=== PATIENT | male | born 1960 | race Caucasian/White ===

== ENCOUNTER → 2019-12-31 12:24 | Outpatient (BNVA) | payer BC, SELFPAY | PROVIDERS: PCP Family Medicine; Referring Provider Family Medicine; Visit Provider Anesthesiology Pain Medicine | DX: M54.12 Radiculopathy, cervical region (principal); M79.606 Pain in leg, unspecified; F17.210 Nicotine dependence, cigarettes, uncomplicated; Z79.891 Long term (current) use of opiate analgesic | CPT/HCPCS: 99204 ==

== ENCOUNTER → 2020-01-28 10:57 | Outpatient (BNVA) | payer BC, SELFPAY | PROVIDERS: PCP Family Medicine; Visit Provider Anesthesiology Pain Medicine | DX: M54.12 Radiculopathy, cervical region (principal); M79.606 Pain in leg, unspecified; F17.210 Nicotine dependence, cigarettes, uncomplicated; Z79.891 Long term (current) use of opiate analgesic | CPT/HCPCS: 99214 ==

== ENCOUNTER → 2020-02-25 10:42 | Outpatient (BNVA) | payer BC, SELFPAY | PROVIDERS: PCP Family Medicine; Visit Provider Anesthesiology Pain Medicine | DX: M54.12 Radiculopathy, cervical region (principal); M79.604 Pain in right leg; M79.605 Pain in left leg; F17.210 Nicotine dependence, cigarettes, uncomplicated; Z79.891 Long term (current) use of opiate analgesic | CPT/HCPCS: 99213 ==

== ENCOUNTER → 2020-03-24 08:48 | Outpatient (BNVA) | payer BC, SELFPAY | PROVIDERS: PCP Family Medicine; Visit Provider Anesthesiology Pain Medicine | DX: M54.12 Radiculopathy, cervical region (principal); M79.606 Pain in leg, unspecified; F17.210 Nicotine dependence, cigarettes, uncomplicated; Z79.891 Long term (current) use of opiate analgesic | CPT/HCPCS: 99213 ==

== ENCOUNTER → 2020-04-21 08:58 | Outpatient (BNVA) | payer BC, SELFPAY | PROVIDERS: PCP Family Medicine; Visit Provider Anesthesiology Pain Medicine | DX: G89.29 Other chronic pain (principal); M54.12 Radiculopathy, cervical region; M48.02 Spinal stenosis, cervical region; M54.9 Dorsalgia, unspecified; M79.606 Pain in leg, unspecified; F17.210 Nicotine dependence, cigarettes, uncomplicated; Z78.9 Other specified health status; Z79.891 Long term (current) use of opiate analgesic | CPT/HCPCS: 99214 ==

== ENCOUNTER → 2020-05-19 10:07 | Outpatient (BNVA) | payer BC, SELFPAY | PROVIDERS: PCP Family Medicine; Visit Provider Anesthesiology Pain Medicine | DX: G89.29 Other chronic pain (principal); M54.12 Radiculopathy, cervical region; M48.02 Spinal stenosis, cervical region; M54.9 Dorsalgia, unspecified; M79.604 Pain in right leg; M79.605 Pain in left leg; F17.210 Nicotine dependence, cigarettes, uncomplicated; Z78.9 Other specified health status; Z79.891 Long term (current) use of opiate analgesic | CPT/HCPCS: 99213; 99214 ==

== ENCOUNTER → 2020-06-17 08:28 | Outpatient (BNVA) | payer BC, SELFPAY | PROVIDERS: PCP Family Medicine; Visit Provider Anesthesiology Pain Medicine | DX: G89.29 Other chronic pain (principal); M48.02 Spinal stenosis, cervical region; M54.12 Radiculopathy, cervical region; M54.9 Dorsalgia, unspecified; M79.605 Pain in left leg; M79.604 Pain in right leg; F17.210 Nicotine dependence, cigarettes, uncomplicated; Z78.9 Other specified health status; Z79.891 Long term (current) use of opiate analgesic | CPT/HCPCS: 99213; 99214 ==

== ENCOUNTER → 2020-08-17 08:38 | Outpatient (BNVA) | payer BC, SELFPAY | PROVIDERS: PCP Family Medicine; Visit Provider Anesthesiology Pain Medicine | DX: G89.29 Other chronic pain (principal); M54.12 Radiculopathy, cervical region; M48.02 Spinal stenosis, cervical region; M54.9 Dorsalgia, unspecified; M79.604 Pain in right leg; M79.605 Pain in left leg; F17.210 Nicotine dependence, cigarettes, uncomplicated; Z78.9 Other specified health status; Z79.891 Long term (current) use of opiate analgesic | CPT/HCPCS: 99213; 99214 ==

== ENCOUNTER → 2020-10-15 08:35 | Outpatient (BNVA) | payer BC, SELFPAY | PROVIDERS: PCP Family Medicine; Visit Provider Anesthesiology Pain Medicine | DX: G89.29 Other chronic pain (principal); M54.12 Radiculopathy, cervical region; M48.02 Spinal stenosis, cervical region; R51.9 Headache, unspecified; M54.9 Dorsalgia, unspecified; M79.606 Pain in leg, unspecified; F17.210 Nicotine dependence, cigarettes, uncomplicated; Z78.9 Other specified health status | CPT/HCPCS: 99214 ==

== ENCOUNTER → 2020-12-15 09:47 | Outpatient (BNVA) | payer BC, SELFPAY | PROVIDERS: PCP Family Medicine; Visit Provider Anesthesiology Pain Medicine | DX: G89.29 Other chronic pain (principal); M54.9 Dorsalgia, unspecified; M48.02 Spinal stenosis, cervical region; M79.606 Pain in leg, unspecified; Z78.9 Other specified health status; Z98.890 Other specified postprocedural states; Z79.891 Long term (current) use of opiate analgesic | CPT/HCPCS: 99214 ==

== ENCOUNTER → 2021-02-09 10:59 | Outpatient (BNVA) | payer BC, SELFPAY | PROVIDERS: PCP Family Medicine; Visit Provider Anesthesiology Pain Medicine | DX: G89.29 Other chronic pain (principal); M54.12 Radiculopathy, cervical region; M48.02 Spinal stenosis, cervical region; M54.9 Dorsalgia, unspecified; M79.606 Pain in leg, unspecified; F17.210 Nicotine dependence, cigarettes, uncomplicated; Z78.9 Other specified health status; Z79.891 Long term (current) use of opiate analgesic; Z98.890 Other specified postprocedural states | CPT/HCPCS: 99214 ==

== ENCOUNTER → 2021-04-06 09:00 | Outpatient (BNVA) | payer BC, SELFPAY | PROVIDERS: PCP Family Medicine; Visit Provider Anesthesiology Pain Medicine | DX: G89.29 Other chronic pain (principal); M54.12 Radiculopathy, cervical region; M48.02 Spinal stenosis, cervical region; M54.9 Dorsalgia, unspecified; F17.210 Nicotine dependence, cigarettes, uncomplicated; Z98.890 Other specified postprocedural states; Z78.9 Other specified health status; Z79.891 Long term (current) use of opiate analgesic | CPT/HCPCS: 99214 ==

== ENCOUNTER 2021-05-15 10:59 | Inpatient (IN) | payer BC, SELFPAY ==
[2021-05-15] VITALS (9 sets, daily range): BP systolic 107–158; BP diastolic 60–92; PULSE 62–86; RESP 15–20; TEMP 37.1–37.8; O2SAT 95–100
--- NOTE | 2021-05-15 14:00 | PC.NURSE ---
PT ARRIVED TO ROOM AT 1400.
--- NOTE | 2021-05-15 14:29 | CTR_ITS ---
PROCEDURE INFORMATION: Exam: CT Abdomen And Pelvis With Contrast Exam date and time: 05/15/2021 2:29 PM Age: 60 years old Clinical indication: Left lower quadrant abdominal pain. TECHNIQUE: Imaging protocol: Computed tomography of the abdomen and pelvis with contrast. Radiation optimization: All CT scans at this facility use at least one of these dose optimization techniques: automated exposure control; mA and/or kV adjustment per patient size (includes targeted exams where dose is matched to clinical indication); or iterative reconstruction. Contrast material: OMNIPAQUE 300; Contrast volume: 95 ml; Contrast route: INTRAVENOUS (IV); COMPARISON: CT abdomen pelvis w con* [id number] 04/11/2021 4:15 PM RADIATION DOSE METRICS: Total DLP (mGy-cm): 888.92 FINDINGS: Lungs: There is dependent atelectasis at the lung bases. No pericardial effusion. No hiatal hernia. Liver: The liver is mildly enlarged measuring 17.5 cm. Gallbladder and bile ducts: The gallbladder is unremarkable. Pancreas: The pancreas is unremarkable. Spleen: The spleen is unremarkable. Adrenal glands: The adrenal glands are unremarkable. Kidneys and ureters: The kidneys are unremarkable.; Approximately 50% narrowing of the proximal left renal artery. Stomach and bowel: The stomach and small bowel are unremarkable.; There is marked wall thickening of the distal descending and sigmoid colon suspicious for colitis and/or diverticulitis. There are colonic diverticula in this region. There is an intramural abscess in the sigmoid colon that measures 3.1 x 2.9 x 1.4 cm. There is phlegmonous stranding superior to the sigmoid colon with trace free air. This involves a region measuring 2.2 x 2.3 by 1.0 cm. There is extensive associated edema and mild free fluid. Appendix: The appendix is unremarkable. Intraperitoneal space: See Stomach and bowel finding. Vasculature: No abdominal aortic aneurysm. Lymph nodes: A left periaortic lymph node measures 1.2 x 1.7 cm. Urinary bladder: The bladder wall is thickened most prominent superiorly. This may be reactive. Correlate with urinalysis to assess for cystitis. Reproductive: The prostate measures 3.3 x 5.2 cm. Bones/joints: No acute fracture is seen. Soft tissues: Tiny fat containing umbilical hernia. CT/CT abdomen pelvis w con* [id number] IMPRESSION: 1. There is marked wall thickening of the distal descending and sigmoid colon suspicious for colitis and/or diverticulitis. There are colonic diverticula in this region. There is an intramural abscess in the sigmoid colon, and there is phlegmonous stranding superior to the sigmoid colon with trace free air. There is extensive associated edema and mild free fluid. Recommend colonoscopy upon resolution of acute symptoms to exclude underlying mass. 2. The bladder wall is thickened most prominent superiorly. This may be reactive. Correlate with urinalysis to assess for cystitis. 3. Approximately 50% narrowing of the proximal left renal artery. 4. Mild retroperitoneal lymphadenopathy. 5. Mild hepatomegaly. Radiation Dose CTDIVOL = (mGy): DLP = 888.92 (mGy-cm)
[2021-05-15 14:39] LABS: Add Urine Microscopic? NO; Charge for UA Resulting for Rev
[2021-05-15 14:44] LABS: Basophils % 0.3 %; Eosinophils % 0.3 %; Hematocrit 43.9 % (42.0-52.0); Hemoglobin 14.5 g/dL (11.7-16.6); Lymphocytes # 1.6 10^3/uL (0.8-4.8); Lymphocytes % 10.6 %; Mean Corpuscular Hemoglobin 30.5 pg (28.0-34.0); Mean Corpuscular Volume 92.4 fl (80-94); Mean Platelet Volume 9.6 fL (7.4-10.4); Monocytes # 1.2 10^3/uL (0.2-0.9); Monocytes % 8.1 %; Neutrophils # 12.34 10^3/uL (1.8-7.7); Neutrophils % 80.4 %; Nucleated Red Blood Cells % 0 %; Platelet Count 297 10^3/cmm (130-400); Red Blood Count 4.75 10^6/uL (4.1-5.3); Red Cell Distribution Width 13.4 % (12.1-15.1); White Blood Count 15.3 10^3/uL (4.0-10.0)
[2021-05-15 14:45] LABS: Specific Gravity, Urine 1.005 (1.005-1.030); Urine Appearance Clear (CLEAR); Urine Color Straw (Yellow); pH Urine 7 (5-7)
[2021-05-15 14:46] LABS: Bilirubin Urine Neg (Negative); Blood Urine Neg (Negative); Glucose Urine UA Norm (Normal); Ketones Urine Negative (Negative); Leukocyte Esterase Urine Negative (Negative); Nitrate Urine Negative (Negative); Protein Urine Neg (Negative); Urobilinogen Urine Norm (Negative)
[2021-05-15 15:01] LABS: Alanine Aminotransferase 11 U/L (0-41); Albumin Level 3.7 g/dL (3.5-5.2); Alkaline Phosphatase 92 IU/L (40-130); Aspartate Amino Transferase 7 U/L (0-40); Blood Urea Nitrogen 7 mg/dL (6-20); Calcium 8.8 mg/dL (8.5-10.5); Carbon Dioxide 28 mmol/L (22-29); Chloride 101 mmol/L (98-107); Globulin 3.7 g/dL (1.3-4.6); Glomerular Filtration Rate 170.2 mL/min (90-130); Glucose 94 mg/dL (65-115); Lipase 32 U/L (13-60); Osmolality Calculated 288 mOsm/kg (285-295); Sodium 140 mmol/L (136-145); Total Bilirubin 0.4 mg/dL (0.15-1.2); Total Protein 7.4 g/dL (6.6-8.7)
[2021-05-15] MEDS: sodium chloride 0.9% 500 ML 999 ML IV (15:03)
[2021-05-15] MEDS: morphine 4 mg/mL SDV 1 mL IVP (15:03)
[2021-05-15] MEDS: iohexol 300 mg/mL 100 mL Btl IV (15:16)
[2021-05-15 15:21] LABS: Anion Gap 14.7 (5-19); Potassium 3.7 mmol/L (3.5-5.1)
[2021-05-15] MEDS: acetaminophen 500 mg Tablet 1000 MG PO (15:56)
--- NOTE | 2021-05-15 16:18 | W.ED.GENADLT ---
HPI - General Adult General: Chief complaint: ER Hold Stated complaint: diverticulitis Time Seen by Provider: 05/15/21 14:13 History of Present Illness: HPI narrative: HPI: [60]yo patient w/ hx of recurrent diverticulitis (last diverticulitis flare 1 month ago) presenting to the ED with new onset of LLQ abd pain x 1 days. Denies fever/chill. +nausea w/o vomiting, inability to tolerate PO, hematochezia/melena or diarrhea. Patient is followed by Dr. Rodas and is planning to get an outpatient CT in the next week to determine whether he is a candiate for sigmoid colectomy. Onset: 1 days ago Duration: ongoing Location: LLQ abdomen Severity: moderate Review of Systems Narrative: Constitutional: No fever, no chills. HEENT: No vision changes CV: No chest pain, no palpitations PULM: No cough, no dyspnea. GI: +LLQ abdominal pain, +N/-V/-D. : No dysuria MSKEL: No edema SKIN: No new rashes, no lesions. NEURO: No headache, no focal weakness. HEME: No visible bruises PSYCH: Normal mood PFSH ED PFSH: Medical History Cervical radiculopathy Diverticulitis Smoker Surgical History (Updated 05/15/21 @ 17:06 by Colt Brush MD) History of colonoscopy with polypectomy JUNE 2021 Family History (Updated 05/15/21 @ 17:06 by Colt Brush MD) Mother Cancer Father Emphysema lung Denies family history of Anesthesia complication Bleeding disorder Social History Alcohol intake: never Lives independently: No History of recent travel: No Physical Exam Narrative: EXAM NARRATIVE: Head: Atraumatic Eyes: PERRL, conjunctiva without injection ENT: Mucous membrane moist NECK: Supple without lymphadenopathy LUNGS: CTA CV: RRR ABDOMEN: Soft, +moderate LLQ TTP, no other focal tenderness to palpation, no Horan?s sign, no Rovsing?s sign, no Obturator?s sign, no McBurney?s point tenderness, no guarding or rebound tenderness, no CVA/flank/suprapubic tenderness EXTREMITY: Normal ROM SKIN: No rash or erythema NEURO: Awake and alert. No focal motor deficits. PSYCH: Normal mood and affect. Course Vital Signs: Vital signs: Vital Signs Temperature 98.7 F 05/16/21 03:36 Pulse Rate 78 05/16/21 03:36 Respiratory Rate 18 05/16/21 03:36 Blood Pressure 149/84 05/16/21 03:36 Pulse Oximetry 96 05/16/21 03:36 MDM - General Adult MDM Narrative: Medical decision making narrative: [60]yo patient w/ hx of recurrently diverticulitis presenting to the ED with LLQ abdominal pain x 1days with similar diverticulitis pain. On exam, the patient has LLQ abdominal tenderness without rebound or guarding. Workup: CBC, BMP, Lipase, UA reflex culture, CT abdomen+pelvis w/ contrast Intervention: ABX, pain control Lab Findings: WBC of 15K CT findings: diverticulitis with intramural abscess and trace free air [4:22pm] On reassessment, patient continues to HDS. Continues to have mild/moderate pain. Findings on CT discussed with Dr. Celestin from General Surgery who agrees that the trace free air is likely microperforation not bowel perforation. He recommends abx for intramural abscess and inpatient admission. Patient will be admitted for reevaluation. Given metronidazole 500mg and ceftriaxone 1g. Disposition: Admission with serial observation Lab Data: Labs: Lab Results 05/15/21 05/15/21 05/15/21 Range/Units 14:26 14:32 14:32 WBC 15.3 H (4.0-10.0) 10^3/ uL RBC 4.75 (4.1-5.3) 10^6/u L Hgb 14.5 (11.7-16.6) g/dL Hct 43.9 (42.0-52.0) % MCV 92.4 (80-94) fl MCH 30.5 (28.0-34.0) pg MCHC 33.0 (30.0-36.0) g/dL RDW 13.4 (12.1-15.1) % Plt Count 297 (130-400) 10^3/c mm MPV 9.6 (7.4-10.4) fL Neut % (Auto) 80.4 % Lymph % (Auto) 10.6 % Beadle % (Auto) 8.1 % Eos % (Auto) 0.3 % Baso % (Auto) 0.3 % Neut # (Auto) 12.34 H (1.8-7.7) 10^3/u L Lymph # (Auto) 1.6 (0.8-4.8) 10^3/u L Beadle # (Auto) 1.2 H (0.2-0.9) 10^3/u L Eos # (Auto) 0.0 (0.0-0.8) 10^3/u L Baso # (Auto) 0.0 (0.0-0.1) 10^3/u L Nucleated RBC % (a uto) 0 % Nucleated RBCs # 0.0 /100WBC Sodium 140 (136-145) mmol/L Potassium 3.7 (3.5-5.1) mmol/L Chloride 101 (98-107) mmol/L Carbon Dioxide 28 (22-29) mmol/L Anion Gap 14.7 (5-19) BUN 7 (6-20) mg/dL Creatinine 0.5 L (0.7-1.2) mg/dL GFR Calculation 170.2 H (90-130) mL/min Glucose 94 (65-115) mg/dL Calculated Osmolal ity 288 (285-295) mOsm/k g Calcium 8.8 (8.5-10.5) mg/dL Total Bilirubin 0.4 (0.15-1.2) mg/dL AST 7 (0-40) U/L ALT 11 (0-41) U/L Alkaline Phosphata se 92 (40-130) IU/L Total Protein 7.4 (6.6-8.7) g/dL Albumin 3.7 (3.5-5.2) g/dL Globulin 3.7 (1.3-4.6) g/dL Lipase 32 (13-60) U/L Urine Color Straw (Yellow) Urine Appearance Clear (CLEAR) Urine pH 7 (5-7) Ur Specific Gravit y 1.005 (1.005-1.030) Urine Protein Neg (Negative) Urine Glucose (UA) Norm (Normal) Urine Ketones Negative (Negative) Urine Blood Neg (Negative) Urine Nitrate Negative (Negative) Urine Bilirubin Neg (Negative) Urine Urobilinogen Norm (Negative) mg/dL Ur Leukocyte Viola ase Negative (Negative) Imaging Data^: Other Imaging: Radiologist's impression: [address], [place] [address]NT Scan ReportSigned with Sonu Patient: José Luis Rodrigez #: [id number]: 1960cct#:[id number]/Sex: 60 / MADM Date: 05/15/21Loc: ERRoom/Bed:Attending Dr: Ordering Provider/Ordering MD: Sandra Melgoza MD Date of Service: 05/15/21 Procedure(s): CT abdomen pelvis w con* [id number] Accession Number(s): [id number] Report Number: [id number]/CT abdomen pelvis w con* [id number] Findings discussed with SANDRA MELGOZA at 05/15/2021 4:17 PM CDT. Radiation Dose CTDIVOL = (mGy): DLP = 888.92 (mGy-cm) Addendum Dictated By: Anson MichaelAddendum Signed By: Jenaro Michael Date/Time:05/15/21 1620Addendum Cosigned By: PROCEDURE INFORMATION: Exam: CT Abdomen And Pelvis With Contrast Exam date and time: 05/15/2021 2:29 PM Age: 60 years old Clinical indication: Left lower quadrant abdominal pain. TECHNIQUE: Imaging protocol: Computed tomography of the abdomen and pelvis with contrast. Radiation optimization: All CT scans at this facility use at least one of these dose optimization techniques: automated exposure control; mA and/or kV adjustment per patient size (includes targeted exams where dose is matched to clinical indication); or iterative reconstruction. Contrast material: OMNIPAQUE 300; Contrast volume: 95 ml; Contrast route: INTRAVENOUS (IV); COMPARISON: CT abdomen pelvis w con* [id number] 04/11/2021 4:15 PM RADIATION DOSE METRICS: Total DLP (mGy-cm): 888.92 FINDINGS: Lungs: There is dependent atelectasis at the lung bases. No pericardial effusion. No hiatal hernia. Liver: The liver is mildly enlarged measuring 17.5 cm. Gallbladder and bile ducts: The gallbladder is unremarkable. Pancreas: The pancreas is unremarkable. Spleen: The spleen is unremarkable. Adrenal glands: The adrenal glands are unremarkable. Kidneys and ureters: The kidneys are unremarkable.; Approximately 50% narrowing of the proximal left renal artery. Stomach and bowel: The stomach and small bowel are unremarkable.; There is marked wall thickening of the distal descending and sigmoid colon suspicious for colitis and/or diverticulitis. There are colonic diverticula in this region. There is an intramural abscess in the sigmoid colon that measures 3.1 x 2.9 x 1.4 cm. There is phlegmonous stranding superior to the sigmoid colon with trace free air. This involves a region measuring 2.2 x 2.3 by 1.0 cm. There is extensive associated edema and mild free fluid. Appendix: The appendix is unremarkable. Intraperitoneal space: See Stomach and bowel finding. Vasculature: No abdominal aortic aneurysm. Lymph nodes: A left periaortic lymph node measures 1.2 x 1.7 cm. Urinary bladder: The bladder wall is thickened most prominent superiorly. This may be reactive. Correlate with urinalysis to assess for cystitis. Reproductive: The prostate measures 3.3 x 5.2 cm. Bones/joints: No acute fracture is seen. Soft tissues: Tiny fat containing umbilical hernia. CT/CT abdomen pelvis w con* [id number] IMPRESSION: 1. There is marked wall thickening of the distal descending and sigmoid colon suspicious for colitis and/or diverticulitis. There are colonic diverticula in this region. There is an intramural abscess in the sigmoid colon, and there is phlegmonous stranding superior to the sigmoid colon with trace free air. There is extensive associated edema and mild free fluid. Recommend colonoscopy upon resolution of acute symptoms to exclude underlying mass. 2. The bladder wall is thickened most prominent superiorly. This may be reactive. Correlate with urinalysis to assess for cystitis. 3. Approximately 50% narrowing of the proximal left renal artery. 4. Mild retroperitoneal lymphadenopathy. 5. Mild hepatomegaly. Radiation Dose CTDIVOL = (mGy): DLP = 888.92 (mGy-cm) Dictated By:Mychal Michaeligned By:Mychal Michaeligned Date/Time:05/15/21 1600DD/ 1558 Discharge Plan Discharge Patient Disposition: Admitted As Inpatient Admit Provider: Colt Brush Clinical Impression: Diverticulitis, Intestinal diverticular abscess Condition: Stable Coding Level of Care Code ED Application Operations Engineer for [facility]
[2021-05-15] MEDS: cefTRIAXone 1,000 MG in sodium chloride 0.9% (plus) 50 ML 100 MG IV (16:41)
[2021-05-15] MEDS: metroNIDAZOLE IV 500 MG/100 ML PREMIX 100 MG IV (16:42)
--- NOTE | 2021-05-15 17:02 | PM.HP ---
Providers/Chief Complaint Primary Care Provider: Jesse Sifuentes MD Chief Complaint: diverticulitis History of Present Illness Farrukh Rodrigez is a 60 year old male with a past medical history of cervical disc disease, history of recurrent diverticulitis, last hospitalization was in February 2021 was transferred to [facility], he also had another episode at of diverticulitis as outpatient, treated with Cipro and Flagyl, who comes back to [facility] for recurrent abdominal pain for the last week. He tells me that his symptoms started roughly on Monday, with left lower quadrant abdominal pain, abdominal distention, decrease in stooling, mild nausea, no vomiting, low-grade fevers. Denies any cough, no upper respiratory tract infection symptoms, no shortness of breath, no known exposure to COVID-19, has not received Covid vaccination. His last episode of bowel movement was this morning. His last meal was a few hours ago. Work-up in the emergency room showed a white count of 15.3, temperature of 100, blood pressure 121/81, CT scan showed marked wall thickening of distal descending and sigmoid colon, there also was an intramural abscess in the sigmoid colon, and there is phlegmonous stranding superior to the sigmoid colon with trace free air. These findings were discussed with Dr. Celestin, who recommended inpatient antibiotics, and conservative management, he will follow along. Patient has received Flagyl, ceftriaxone, IV fluids Review of Systems Const: Reports: fever(s); Denies: chills, fatigue or malaise Eyes: Denies: change in vision or blurry vision ENMT: Denies: nasal congestion Resp: Denies: dyspnea, productive cough, non-productive cough or wheezing GI: Reports: abdominal pain, nausea, diarrhea and hematochezia; Denies: vomiting, hematemesis, constipation or melena : Denies: flank pain, difficulty urinating, dysuria or urinary frequency Musc: Reports: neck pain; Denies: back pain Skin/Breast: Denies: rash Neuro: Denies: headache(s), dizziness or vertigo Endo: Denies: polyuria or polydipsia Medications/Allergies Home Medications Medication Instructions Recorded Confirmed Last Taken Type acetaminophen 500 mg tablet 1,000 mg PO BID PRN tab 12/15/20 05/15/21 Unknown History gabapentin 600 mg tablet 1,200 mg PO TID 30 Days #180 tab 02/09/21 05/15/21 05/15/21 Rx oxycodone-acetaminophen 10 mg-325 1 tab PO BID PRN 28 Days #56 tab 04/06/21 05/15/21 05/15/21 Rx mg tablet MDD 2 aspirin-sod bicarb-citric acid 324 mg PO DAILY PRN 05/15/21 05/15/21 Unknown History [Roberta-Monett] Allergies Allergy/AdvReac Type Severity Reaction Status Date / Time No Known Allergies Allergy Verified 04/06/21 09:24 PFSH Acute PFSH: Medical History Cervical radiculopathy Diverticulitis Smoker Surgical History (Updated 05/15/21 @ 17:06 by Colt Brush MD) History of colonoscopy with polypectomy JUNE 2021 Family History (Updated 05/15/21 @ 17:06 by Colt Brush MD) Mother Cancer Father Emphysema lung Denies family history of Anesthesia complication Bleeding disorder Social History Alcohol intake: never Lives independently: No History of recent travel: No Vitals/I&O/Wt Last Vital Signs Temp 100.0 F H 05/15/21 11:50 Pulse 85 05/15/21 15:58 Resp 16 05/15/21 15:58 BP 122/81 05/15/21 15:58 Pulse Ox 97 05/15/21 15:58 Weight last 48 hrs Weight 62.596 kg Physical Exam Const: COMMON NORMALS: no acute distress and patient oriented x3 Eye: COMMON NORMALS: Equal, round and reactive pupils present Neck/C-Spine: COMMON NORMALS: full ROM and no lymphadenopathy THYROID: Thyroid normal Lymph: LYMPHATIC: no lymphadenopathy noted Resp: COMMON NORMALS: normal respiratory effort, No retractions, No use of accessory muscles and clear to auscultation bilaterally AUSCULTATION: clear to auscultation bilaterally Cardio: COMMON NORMALS: regular rate, regular rhythm, S1 normal heart sound present, S2 normal heart sound present, No gallops present (Cardio), No clicks present (Cardio) and No murmurs present (Cardio) RATE: regular rate RHYTHM: regular rhythm HEART SOUNDS: S1 normal heart sound present and S2 normal heart sound present GI: COMMON NORMALS: Normal to inspection, nondistended, normoactive bowel sounds present and Soft to palpation INSPECTION: Yes normal to inspection PALPATION: No Firmness to palpation present (GI), Yes Tenderness to palpation present (GI) Details: LLQ, No Guarding due to palpation present (GI) and No Rigid due to palpation Extremity: COMMON NORMALS: no pedal edema Neuro: COMMON NORMALS: patient oriented x3, CN's II-XII intact bilaterally, moves all extremities and no focal motor deficits Psych: COMMON NORMALS: mental status grossly normal, Normal thought process present and cooperative THOUGHT PROCESS: Normal thought process present Data : 05/15/21 14:32 05/15/21 14:32 A&P Assessment and plan (1) Acute diverticulitis: -CT scan of the abdomen pelvis: there is marked wall thickening of the distal descending and sigmoid colon suspicious for colitis and/or diverticulitis. There are colonic diverticula in this region. There is an intramural abscess in the sigmoid colon, and there is phlegmonous stranding superior to the sigmoid colon with trace free air. There is extensive associated edema and mild free fluid. Recommend colonoscopy upon resolution of acute symptoms to exclude underlying mass. -Thus he has an intramural abscess in the sigmoid colon, with phlegmonous stranding superior to the sigmoid colon with trace free air PLAN: -Admit to general medical floors -Start Zosyn for antibiotic coverage -Morphine for pain -Zofran for nausea -Serial abdominal exams -Trend white count, inflammatory markers -IV fluids -Keep patient n.p.o. -Full code -Lovenox for DVT prophylaxis -General surgery on consult Status: Acute Attestations Medical Necessity Statement*: Patient requires hospitalization, inpatient, greater than 2 midnights, acute diverticulitis, with intramural abscess, with trace air Coding Level of Care Code Acute Radio Communication Coordinator for [facility]ana Diagnoses Acute diverticulitis K57.92
--- NOTE | 2021-05-15 19:11 | PC.NURSE ---
ATTEMPTED TO CALL REPORT TO FLOOR; ON HOLD FOR NURSE FOR 10 MINUTES.
[2021-05-15] MEDS: enoxaparin 40 mg/0.4 mL Syringe SUBCUT (20:30)
[2021-05-15] MEDS: gabapentin 400 mg Capsule 1200 MG PO (20:31)
[2021-05-15] MEDS: morphine 4 mg/mL SDV 1 mL 2 MG IVP (20:39)
[2021-05-15] MEDS: dextrose 5%-sod chloride 0.9% 1,000 ML 100 ML IV (21:48)
[2021-05-15] MEDS: pantoprazole 40 mg SDV IVP (21:57)
[2021-05-15] MEDS: piperacillin-tazobactam 3.375 GM in sodium chloride 0.9% (plus) 50 ML IV (22:03)
[2021-05-16] VITALS (8 sets, daily range): BP systolic 115–149; BP diastolic 67–84; PULSE 75–83; RESP 14–20; TEMP 37–37.6; O2SAT 95–98
[2021-05-16] MEDS: morphine 4 mg/mL SDV 1 mL 2 MG IVP ×3 (01:34→10:46)
[2021-05-16] MEDS: piperacillin-tazobactam 3.375 GM in sodium chloride 0.9% (plus) 50 ML IV ×3 (05:08→20:37)
[2021-05-16 05:53] LABS: Basophils # 0.1 10^3/uL (0.0-0.1); Basophils % 0.5 %; Eosinophils # 0.1 10^3/uL (0.0-0.8); Eosinophils % 0.5 %; Hematocrit 40.5 % (42.0-52.0); Hemoglobin 13.2 g/dL (11.7-16.6); Lymphocytes # 1.7 10^3/uL (0.8-4.8); Mean Corpuscular HGB Conc 32.6 g/dL (30.0-36.0); Mean Corpuscular Hemoglobin 30.6 pg (28.0-34.0); Mean Corpuscular Volume 93.8 fl (80-94); Mean Platelet Volume 9.3 fL (7.4-10.4); Monocytes # 1.1 10^3/uL (0.2-0.9); Monocytes % 8.8 %; Neutrophils # 9.77 10^3/uL (1.8-7.7); Neutrophils % 76.7 %; Nucleated Red Blood Cells % 0 %; Platelet Count 270 10^3/cmm (130-400); Red Blood Count 4.32 10^6/uL (4.1-5.3); Red Cell Distribution Width 13.4 % (12.1-15.1); White Blood Count 12.7 10^3/uL (4.0-10.0)
[2021-05-16 06:22] LABS: Alanine Aminotransferase 8 U/L (0-41); Albumin Level 3.2 g/dL (3.5-5.2); Alkaline Phosphatase 77 IU/L (40-130); Anion Gap 11.6 (5-19); Aspartate Amino Transferase 7 U/L (0-40); Blood Urea Nitrogen 7 mg/dL (6-20); C Reactive Protein 187.5 mg/L (0.0-4.9); Calcium 8.2 mg/dL (8.5-10.5); Carbon Dioxide 25 mmol/L (22-29); Chloride 103 mmol/L (98-107); Globulin 2.9 g/dL (1.3-4.6); Glomerular Filtration Rate 137.9 mL/min (90-130); Glucose 121 mg/dL (65-115); Osmolality Calculated 281 mOsm/kg (285-295); Phosphorus 2.1 mg/dL (2.5-4.5); Potassium 3.6 mmol/L (3.5-5.1); Sodium 136 mmol/L (136-145); Total Bilirubin 0.3 mg/dL (0.15-1.2); Total Protein 6.1 g/dL (6.6-8.7)
[2021-05-16 06:23] LABS: Lactate (Lactic Acid level) 0.9 mmol/L (0.5-2.2)
[2021-05-16] MEDS: dextrose 5%-sod chloride 0.9% 1,000 ML 100 ML IV ×2 (08:37→16:29)
[2021-05-16] MEDS: gabapentin 400 mg Capsule 1200 MG PO ×3 (08:38→20:34)
[2021-05-16] MEDS: pantoprazole 40 mg SDV IVP ×2 (08:38→20:36)
--- NOTE | 2021-05-16 09:03 | PM.CONSULT ---
Providers/Reason For Consult Consulting Physician/Specialty*: General Surgery Rashi Celestin MD Reason for Consult*: Recurrent sigmoid diverticulitis. Attending Physician: Colt Brush MD Primary Care Provider: Jesse Sifuentes MD History of Present Illness History of Present Illness Farrukh Rodrigez is a 60 year old male who was admitted last night with complicated sigmoid diverticulitis. He says that he started having left lower quadrant discomfort about a week ago and it has persisted but was mild. He said yesterday morning he awoke with significantly increased pain. He says he has been having some fevers and chills as well as some nausea but no vomiting. He says his bowel habits have been all over the place. He has seen some evidence of hematochezia over the past 3 days. He came to the emergency department and a CAT scan showed sigmoid diverticulitis with what appeared to be an intramural abscess and perhaps a small area of extraluminal air. He was admitted and started on broad-spectrum antibiotics. The patient has had recurrent episodes of sigmoid diverticulitis and says his first episode happened in August 2020. He apparently did fairly well until February of this summer when he was once again diagnosed with diverticulitis. He improved somewhat but then it sounds like his episode recurred and worsened. He was seen at [facility] and was transferred to the [facility]. He was treated conservatively there, but was told that he may want to consider an elective colonic resection. The patient is currently being seen Dr. Rodas in the office as an outpatient, and was apparently scheduled for a repeat CAT scan tomorrow morning, I am assuming for anatomic purposes and follow-up of previous episodes of diverticulitis and preparations for possible elective colon resection. The patient says he feels about the same this morning. Review of Systems General: Reports: 10 or more systems reviewed and unremarkable except in HPI and below Const: Reports: fever(s) and chills GI: Reports: abdominal pain, nausea, change in stool character and hematochezia; Denies: vomiting Meds/Allergies Home Medications and Allergies Home Medications Medication Instructions Recorded Confirmed Last Taken Type acetaminophen 500 mg tablet 1,000 mg PO BID PRN tab 12/15/20 05/15/21 Unknown History gabapentin 600 mg tablet 1,200 mg PO TID 30 Days #180 tab 02/09/21 05/15/2121 Rx oxycodone-acetaminophen 10 mg-325 1 tab PO BID PRN 28 Days #56 tab 04/06/21 05/15/21 05/15/21 Rx mg tablet MDD 2 aspirin-sod bicarb-citric acid 324 mg PO DAILY PRN 05/15/21 05/15/21 Unknown History [Roberta-Sujey] Allergies Allergy/AdvReac Type Severity Reaction Status Date / Time No Known Allergies Allergy Verified 04/06/21 09:24 Current Medications Current Medications Generic Name Dose Route Start Last Admin Trade Name Freq PRN Reason Stop Dose Admin Enoxaparin Sodium 40 mg 05/15/21 17:44 05/15/21 20:30 Enoxaparin 40 Mg/0.4 Ml Syringe SUBCUT 40 mg Q24H JARRELL Administration Gabapentin 1,200 mg 05/15/21 21:00 05/16/21 08:38 Gabapentin 400 Mg Capsule PO 1,200 mg TID JARRELL Administration Piperacillin Sod/Tazobactam 50 mls @ 12.5 mls/hr 05/15/21 18:00 05/16/21 05:08 Sod 3.375 gm/ Sodium Chloride IV 12.5 mls/hr Q8H JARRELL Administration Protocol Dextrose/Sodium Chloride 1,000 mls @ 100 mls/hr 05/15/21 17:44 05/16/21 08:37 Dextrose 5%-Sod Chloride 0.9% IV 100 mls/hr .Q10H JARRELL Administration Morphine Sulfate 2 mg 05/15/21 17:44 05/16/21 06:27 Morphine 4 Mg/Ml Sdv 1 Ml IVP 2 mg Q4H PRN Administration SEVERE PAIN Pantoprazole Sodium 40 mg 05/15/21 17:44 05/16/21 08:38 Pantoprazole 40 Mg Sdv IVP 40 mg Q12H JARRELL Administration PFSH Acute PFSH: Medical History Cervical radiculopathy Colon polyps Diverticulitis Diverticulosis Smoker Surgical History (Updated 05/16/21 @ 10:06 by Rashi Celestin MD) History of colonoscopy with polypectomy 06/2021 --[facility] Family History (Updated 05/15/21 @ 17:06 by Colt Brush MD) Mother Cancer Father Emphysema lung Denies family history of Anesthesia complication Bleeding disorder Social History Alcohol intake: never Lives independently: No History of recent travel: No Vitals/I&O/Wt Last Vital Signs Temp 98.7 F 05/16/21 03:36 Pulse 78 05/16/21 03:36 Resp 20 H 05/16/21 06:27 BP 149/84 05/16/21 03:36 Pulse Ox 96 05/16/21 03:36 05/15/21 05/16/21 05/16/21 22:59 06:59 14:59 Intake Total 150 / 200 50 / 200 1000 / 1000 Balance 150 / 200 50 / 200 1000 / 1000 Weight last 48 hrs Weight 138 lb Physical Exam Narrative: EXAM NARRATIVE: The patient was encountered in his hospital room. He does not appear to be in any acute distress but acts like he just does not feel very well. The pupils are equal. No carotid bruits are heard. The lungs are clear anteriorly. The heart is regular. The abdomen reveals hypoactive bowel sounds but is soft. He does have his maximum point of tenderness in the lower abdomen in the midline into the left lower quadrant. No obvious masses are palpated. The extremities reveal no edema. Neurologically the patient appears to be grossly intact. Data Imaging^: CT Abd/Pel: Radiologist's impression: CT scan abdomen/pelvis 05/15/2021 IMPRESSION: 1. There is marked wall thickening of the distal descending and sigmoid colon suspicious for colitis and/or diverticulitis. There are colonic diverticula in this region. There is an intramural abscess in the sigmoid colon, and there is phlegmonous stranding superior to the sigmoid colon with trace free air. There is extensive associated edema and mild free fluid. Recommend colonoscopy upon resolution of acute symptoms to exclude underlying mass. 2. The bladder wall is thickened most prominent superiorly. This may be reactive. Correlate with urinalysis to assess for cystitis. 3. Approximately 50% narrowing of the proximal left renal artery. 4. Mild retroperitoneal lymphadenopathy. 5. Mild hepatomegaly. A&P Assessment and plan (1) Diverticulitis of large intestine with complication: CT reviewed. White blood cell count is slightly improved over yesterday. We have discussed diverticulitis in some detail. The patient has been through this several times before and seemed to have a fairly good understanding of the disease process. Continue broad-spectrum antibiotics. Assuming continued improvement, he can continue following up with Dr. Lazo for further discussions regarding elective sigmoid resection. Status: Acute Consult Attestations Medical Necessity Statement: See admitting service's notation. Coding Level of Care Code Acute Invoice Machine Operator for Bianka Huitron Diagnoses Diverticulitis of large intestine with complication K57.32
--- NOTE | 2021-05-16 12:04 | P.PN_ITS ---
Subjective Subjective: Interval history: Patient was seen this morning, he continues to have abdominal pain, no bowel movement, no nausea, no vomiting, no fevers Vitals/I&O/Wt Last Vital Signs Temp 98.9 F 05/16/21 08:00 Pulse 75 05/16/21 08:00 Resp 20 H 05/16/21 10:46 BP 115/67 05/16/21 08:00 Pulse Ox 95 05/16/21 10:46 05/15/21 05/16/21 05/16/21 22:59 06:59 14:59 Intake Total 150 / 150 50 / 200 1050 / 1050 Balance 150 / 150 50 / 200 1050 / 1050 Weight last 48 hrs Weight 62.596 kg Physical Exam Const: COMMON NORMALS: no acute distress and patient oriented x3 Resp: COMMON NORMALS: normal respiratory effort, No retractions, No use of accessory muscles and clear to auscultation bilaterally AUSCULTATION: clear to auscultation bilaterally Cardio: COMMON NORMALS: regular rate, regular rhythm, S1 normal heart sound present and S2 normal heart sound present RATE: regular rate RHYTHM: regular rhythm HEART SOUNDS: S1 normal heart sound present and S2 normal heart sound present GI: COMMON NORMALS: Normal to inspection, nondistended, normoactive bowel sounds present, Soft to palpation and non-tender PALPATION: Yes Soft to palpation and Yes Tenderness to palpation present (GI) Details: LLQ Extremity: COMMON NORMALS: no pedal edema Neuro: COMMON NORMALS: patient oriented x3 Psych: COMMON NORMALS: mental status grossly normal Data : 05/16/21 05:38 05/16/21 05:38 A&P Assessment and plan (1) Acute diverticulitis: -With evidence of intramural abscess, phlegmonous stranding superior to the sigmoid colon with trace free air -CT scan of the abdomen pelvis: there is marked wall thickening of the distal descending and sigmoid colon suspicious for colitis and/or diverticulitis. There are colonic diverticula in this region. There is an intramural abscess in the sigmoid colon, and there is phlegmonous stranding superior to the sigmoid colon with trace free air. There is extensive associated edema and mild free fluid. Recommend colonoscopy upon resolution of acute symptoms to exclude underlying mass. -Thus he has an intramural abscess in the sigmoid colon, with phlegmonous stranding superior to the sigmoid colon with trace free air PLAN: -Admit to general medical floors -Start Zosyn for antibiotic coverage -Switch to Dilaudid for pain -Zofran for nausea -Serial abdominal exams -Trend white count, inflammatory markers -IV fluids -Currently on clear liquids -Full code -Lovenox for DVT prophylaxis -General surgery on consult Status: Acute Attestations Medical Necessity Statement*: Patient requires hospitalization for acute diverticulitis Coding Level of Care Code Acute Toy Department Manager for Bianka Huitron Diagnoses Acute diverticulitis K57.92
[2021-05-16] MEDS: HYDROmorphone 1 mg/mL INJ 1 mL 0.5 MG IVP ×2 (16:00→20:28)
[2021-05-16] MEDS: enoxaparin 40 mg/0.4 mL Syringe SUBCUT (16:29)
[2021-05-17] VITALS (12 sets, daily range): BP systolic 105–126; BP diastolic 61–77; PULSE 63–103; RESP 16–20; TEMP 36.6–37.2; O2SAT 94–98
--- NOTE | 2021-05-17 00:42 | PC.NURSE ---
i reported high pulse 103 to nurse
[2021-05-17] MEDS: HYDROmorphone 1 mg/mL INJ 1 mL 0.5 MG IVP ×6 (00:52→21:36)
[2021-05-17] MEDS: dextrose 5%-sod chloride 0.9% 1,000 ML 100 ML IV ×2 (02:47→13:36)
[2021-05-17] MEDS: piperacillin-tazobactam 3.375 GM in sodium chloride 0.9% (plus) 50 ML IV ×3 (04:59→21:24)
[2021-05-17 05:32] LABS: Basophils # 0.1 10^3/uL (0.0-0.1); Basophils % 0.5 %; Eosinophils # 0.1 10^3/uL (0.0-0.8); Eosinophils % 1.1 %; Hematocrit 38.7 % (42.0-52.0); Hemoglobin 12.7 g/dL (11.7-16.6); Lymphocytes # 1.9 10^3/uL (0.8-4.8); Lymphocytes % 17.3 %; Mean Corpuscular HGB Conc 32.8 g/dL (30.0-36.0); Mean Corpuscular Volume 94.4 fl (80-94); Mean Platelet Volume 9.1 fL (7.4-10.4); Monocytes # 0.8 10^3/uL (0.2-0.9); Monocytes % 7.5 %; Neutrophils # 8.04 10^3/uL (1.8-7.7); Neutrophils % 73.3 %; Nucleated Red Blood Cells % 0 %; Platelet Count 309 10^3/cmm (130-400); Red Cell Distribution Width 13.7 % (12.1-15.1)
[2021-05-17 05:53] LABS: Alanine Aminotransferase 8 U/L (0-41); Alkaline Phosphatase 77 IU/L (40-130); Anion Gap 12.8 (5-19); Aspartate Amino Transferase 5 U/L (0-40); Blood Urea Nitrogen 6 mg/dL (6-20); C Reactive Protein 203.1 mg/L (0.0-4.9); Calcium 8.3 mg/dL (8.5-10.5); Carbon Dioxide 26 mmol/L (22-29); Chloride 104 mmol/L (98-107); Globulin 3.2 g/dL (1.3-4.6); Glomerular Filtration Rate 137.9 mL/min (90-130); Glucose 116 mg/dL (65-115); Magnesium 2.1 mg/dL (1.7-2.3); Osmolality Calculated 287 mOsm/kg (285-295); Phosphorus 2.7 mg/dL (2.5-4.5); Potassium 3.8 mmol/L (3.5-5.1); Sodium 139 mmol/L (136-145); Total Bilirubin 0.4 mg/dL (0.15-1.2); Total Protein 6.2 g/dL (6.6-8.7)
[2021-05-17 05:54] LABS: Lactate (Lactic Acid level) 0.7 mmol/L (0.5-2.2)
[2021-05-17 06:00] LABS: Procalcitonin 0.07 ng/mL (0-0.5)
--- NOTE | 2021-05-17 07:35 | PM.PN ---
Subjective Subjective: Interval history: The patient says he is starting to feel better. He is passing a little bit of flatus. He was hoping we could restart his stool softener daily, as he has been prescribed that in the past. Vitals/I&O/Wt Last Vital Signs Temp 99.0 F 05/17/21 04:00 Pulse 64 05/17/21 04:00 Resp 20 H 05/17/21 04:56 BP 114/68 05/17/21 04:00 Pulse Ox 97 05/17/21 04:00 05/16/21 05/17/21 05/17/21 22:59 06:59 14:59 Intake Total 1456.667 / 3796.667 1290 / 3796.667 Output Total 600 / 600 Balance 1456.667 / 3196.667 690 / 3196.667 Weight last 48 hrs Weight 138 lb Physical Exam Narrative: EXAM NARRATIVE: The patient has been afebrile for 36 hours. The patient still has some lower abdominal tenderness on exam but it is clearly improved from when I saw him yesterday. Data : 05/17/21 05:05 05/17/21 05:05 A&P Assessment and plan (1) Diverticulitis of large intestine with complication: The patient is showing signs of improvement. His exam is improved and his white blood cell count continues to defervesce. Continue IV antibiotics. I will restart the patient stool softener at his request. Status: Acute Attestations Medical Necessity Statement*: See admitting service's notation. Coding Level of Care Code Acute Multiple Drum Sander Helper for Bianka Huitron Diagnoses Diverticulitis of large intestine with complication K57.32
[2021-05-17] MEDS: pantoprazole 40 mg SDV IVP ×2 (08:31→21:24)
[2021-05-17] MEDS: docusate sodium 100 mg Capsule PO (08:31)
[2021-05-17] MEDS: gabapentin 400 mg Capsule 1200 MG PO ×3 (08:31→21:24)
--- NOTE | 2021-05-17 09:07 | PC.NURSE ---
patient rates pain 8/10 in lower back, abdomen and groin. patient given 0.5mg of dilaudid.
--- NOTE | 2021-05-17 13:13 | XRR_ITS ---
PROCEDURE INFORMATION: Exam: XR Abdomen Exam date and time: 05/17/2021 1:13 PM Age: 60 years old Clinical indication: Pain and condition or disease; Intestinal condition; Diverticulitis; Abdominal pain; Generalized TECHNIQUE: Imaging protocol: XR of the abdomen. Views: 2 Views. Upright and supine views. COMPARISON: CT abdomen pelvis w con* [id number] 05/15/2021 3:09 PM FINDINGS: Gastrointestinal tract: Normal. No bowel dilation. Intraperitoneal space: Normal. No free air. Bones/joints: Unremarkable for age. XR/XR abdomen min 2V [id number] IMPRESSION: No acute findings.
[2021-05-17] MEDS: enoxaparin 40 mg/0.4 mL Syringe SUBCUT (16:59)
--- NOTE | 2021-05-17 18:32 | PC.RESP ---
SMOKING CESSATION INFORMATION SENT TO PATIENT.
--- NOTE | 2021-05-17 18:46 | PM.PN ---
Subjective Subjective: Interval history: 60-year-old male admitted for diverticulitis. Reports no bowel movement since Monday. Still has mild abdominal discomfort. Afebrile Medications: Reviewed: Yes Vitals/I&O/Wt Last Vital Signs Temp 98.7 F 05/17/21 15:36 Pulse 74 05/17/21 15:36 Resp 18 05/17/21 17:26 BP 105/63 05/17/21 15:36 Pulse Ox 96 05/17/21 17:26 05/17/21 05/17/21 05/17/21 06:59 14:59 22:59 Intake Total 1290 / 3796.667 1290 / 1290 890 / 2180 Output Total 600 / 600 Balance 690 / 3196.667 1290 / 1290 890 / 2180 Physical Exam Const: COMMON NORMALS: no acute distress and patient oriented x3 Resp: COMMON NORMALS: No use of accessory muscles and clear to auscultation bilaterally AUSCULTATION: clear to auscultation bilaterally Cardio: COMMON NORMALS: regular rate and regular rhythm RATE: regular rate RHYTHM: regular rhythm GI: COMMON NORMALS: Soft to palpation PALPATION: Yes Soft to palpation OTHER: decrease bowel sounds, TTP Neuro: COMMON NORMALS: patient oriented x3 Data : 05/17/21 05:05 05/17/21 05:05 A&P Assessment and plan (1) Diverticulitis: Status: Acute Additional A&P Information #diverticulitis #abdominal pain --CLD --serial labs -continue PRN analgesics, --Senna S added --continue Zosyn DVT: Lovenox Attestations Medical Necessity Statement*: Farrukh Rodrigez's hospital stay will require greater than 2 midnights for diverticulitis Coding Level of Care Code Acute Headstart Teacher for [facility] Fwd Diagnoses Diverticulitis K57.92
[2021-05-18] VITALS (10 sets, daily range): BP systolic 109–135; BP diastolic 64–83; PULSE 63–82; RESP 18–20; TEMP 36.7–37.3; O2SAT 95–98
[2021-05-18] MEDS: HYDROmorphone 1 mg/mL INJ 1 mL 0.5 MG IVP ×5 (01:37→21:02)
[2021-05-18 05:13] LABS: Basophils # 0.1 10^3/uL (0.0-0.1); Basophils % 0.6 %; Eosinophils # 0.2 10^3/uL (0.0-0.8); Eosinophils % 2.8 %; Hematocrit 37.3 % (42.0-52.0); Hemoglobin 12.1 g/dL (11.7-16.6); Mean Corpuscular HGB Conc 32.4 g/dL (30.0-36.0); Mean Corpuscular Hemoglobin 30.3 pg (28.0-34.0); Mean Corpuscular Volume 93.5 fl (80-94); Monocytes # 0.7 10^3/uL (0.2-0.9); Monocytes % 8.1 %; Neutrophils # 5.52 10^3/uL (1.8-7.7); Neutrophils % 65.3 %; Nucleated Red Blood Cells % 0 %; Platelet Count 314 10^3/cmm (130-400); Red Blood Count 3.99 10^6/uL (4.1-5.3); Red Cell Distribution Width 13.4 % (12.1-15.1); White Blood Count 8.5 10^3/uL (4.0-10.0)
[2021-05-18 05:28] LABS: Lactate (Lactic Acid level) 0.7 mmol/L (0.5-2.2)
[2021-05-18] MEDS: dextrose 5%-sod chloride 0.9% 1,000 ML 100 ML IV ×3 (05:30→18:04)
[2021-05-18] MEDS: piperacillin-tazobactam 3.375 GM in sodium chloride 0.9% (plus) 50 ML IV ×3 (05:32→21:32)
[2021-05-18 05:35] LABS: Alanine Aminotransferase 9 U/L (0-41); Alkaline Phosphatase 78 IU/L (40-130); Anion Gap 13.5 (5-19); Aspartate Amino Transferase 6 U/L (0-40); Blood Urea Nitrogen 5 mg/dL (6-20); C Reactive Protein 135.3 mg/L (0.0-4.9); Calcium 8.3 mg/dL (8.5-10.5); Carbon Dioxide 25 mmol/L (22-29); Chloride 103 mmol/L (98-107); Globulin 3.1 g/dL (1.3-4.6); Glomerular Filtration Rate 137.9 mL/min (90-130); Glucose 126 mg/dL (65-115); Magnesium 2.1 mg/dL (1.7-2.3); Osmolality Calculated 285 mOsm/kg (285-295); Phosphorus 2.9 mg/dL (2.5-4.5); Potassium 3.5 mmol/L (3.5-5.1); Sodium 138 mmol/L (136-145); Total Bilirubin 0.3 mg/dL (0.15-1.2); Total Protein 6.1 g/dL (6.6-8.7)
[2021-05-18 05:41] LABS: Procalcitonin 0.04 ng/mL (0-0.5)
--- NOTE | 2021-05-18 07:43 | PM.PN ---
Subjective Subjective: Interval history: The patient feels better. He has had two soft bowel movements. He is getting hungry. Vitals/I&O/Wt Last Vital Signs Temp 98.1 F 05/18/21 03:53 Pulse 63 05/18/21 03:53 Resp 18 05/18/21 05:39 BP 126/78 05/18/21 03:53 Pulse Ox 95 05/18/21 03:53 05/17/21 05/18/21 05/18/21 22:59 06:59 14:59 Intake Total 890 / 4230 2050 / 4230 Output Total 800 / 800 Balance 890 / 3430 1250 / 3430 Physical Exam Narrative: EXAM NARRATIVE: Only mild tenderness remains on exam. Bowel sounds are present. Data : 05/18/21 04:45 05/18/21 04:45 A&P Assessment and plan (1) Diverticulitis of large intestine with complication: Continued improvement. The patient's white blood cell count has normalized. I will start him on a low residue diet and we will see how he does. Status: Acute Attestations Medical Necessity Statement*: See admitting service's notation. Coding Level of Care Code Acute Blow Mold Operator for Bianka Huitron Diagnoses Diverticulitis of large intestine with complication K57.32
[2021-05-18] MEDS: gabapentin 400 mg Capsule 1200 MG PO ×3 (10:05→21:33)
[2021-05-18] MEDS: docusate sodium 100 mg Capsule PO (10:05)
[2021-05-18] MEDS: pantoprazole 40 mg SDV IVP ×2 (10:06→21:32)
--- NOTE | 2021-05-18 10:11 | PC.NURSE ---
Patient stated he has had 4 loose bowel movements this morning. Patient refused Senna but took Colace.
[2021-05-18] MEDS: ondansetron 2 mg/ML SDV 2 mL 4 MG IVP (13:03)
--- NOTE | 2021-05-18 13:30 | PM.PN ---
Subjective Subjective: Interval history: 60-year-old male admitted for diverticulitis. He had two bowel movement today. Diet has been advanced. Report some nausea today. Medications: Reviewed: Yes Vitals/I&O/Wt Last Vital Signs Temp 98.4 F 05/18/21 12:00 Pulse 82 05/18/21 12:00 Resp 18 05/18/21 12:00 BP 109/64 05/18/21 12:00 Pulse Ox 95 05/18/21 12:00 05/17/21 05/18/21 05/18/21 22:59 06:59 14:59 Intake Total 890 / 2180 2050 / 4230 290 / 290 Output Total 800 / 800 Balance 890 / 2180 1250 / 3430 290 / 290 Physical Exam Const: COMMON NORMALS: no acute distress and patient oriented x3 Chest: COMMONS NORMALS: normal inspection of the chest Resp: COMMON NORMALS: normal respiratory effort, No retractions and No use of accessory muscles Cardio: COMMON NORMALS: regular rate and regular rhythm RATE: regular rate RHYTHM: regular rhythm GI: COMMON NORMALS: Soft to palpation and non-tender PALPATION: Yes Soft to palpation Neuro: COMMON NORMALS: patient oriented x3 and CN's II-XII intact bilaterally Psych: COMMON NORMALS: mental status grossly normal and Normal thought process present THOUGHT PROCESS: Normal thought process present Skin: COMMON NORMALS: no rashes or lesions noted GENERAL SKIN EXAM: no rashes or lesions noted Data : 05/18/21 04:45 05/18/21 04:45 A&P Assessment and plan (1) Diverticulitis: Status: Chronic (2) Long-term use of high-risk medication: Status: Acute Additional A&P Information #diverticulitis #abdominal pain --soft diet --serial labs -continue PRN analgesics, --hold Senna S --continue Zosyn --PRN Zofran --DC soon DVT: Lovenox Attestations Medical Necessity Statement*: Farrukh Rodrigez's hospital stay will require greater than 2 midnights for diverticulitis Coding Level of Care Code Acute Skoog Machine Operator for g Fwd Diagnoses Diverticulitis K57.92 Long-term use of high-risk medication Z79.899
[2021-05-18] MEDS: enoxaparin 40 mg/0.4 mL Syringe SUBCUT (18:04)
[2021-05-19] VITALS (7 sets, daily range): BP systolic 115–140; BP diastolic 69–83; PULSE 60–65; RESP 16–18; TEMP 36.4–37.2; O2SAT 93–98
[2021-05-19] MEDS: HYDROmorphone 1 mg/mL INJ 1 mL 0.5 MG IVP ×3 (01:16→11:34)
[2021-05-19] MEDS: piperacillin-tazobactam 3.375 GM in sodium chloride 0.9% (plus) 50 ML IV (04:00)
[2021-05-19] MEDS: dextrose 5%-sod chloride 0.9% 1,000 ML 100 ML IV (04:00)
[2021-05-19 05:21] LABS: Basophils # 0.1 10^3/uL (0.0-0.1); Basophils % 0.7 %; Eosinophils # 0.3 10^3/uL (0.0-0.8); Eosinophils % 4.3 %; Hematocrit 37.7 % (42.0-52.0); Hemoglobin 12.3 g/dL (11.7-16.6); Lymphocytes # 2.1 10^3/uL (0.8-4.8); Lymphocytes % 29.6 %; Mean Corpuscular HGB Conc 32.6 g/dL (30.0-36.0); Mean Corpuscular Hemoglobin 30.4 pg (28.0-34.0); Mean Corpuscular Volume 93.3 fl (80-94); Mean Platelet Volume 9.1 fL (7.4-10.4); Monocytes # 0.5 10^3/uL (0.2-0.9); Monocytes % 7.2 %; Neutrophils # 4.18 10^3/uL (1.8-7.7); Neutrophils % 57.9 %; Nucleated Red Blood Cells % 0 %; Platelet Count 361 10^3/cmm (130-400); Red Blood Count 4.04 10^6/uL (4.1-5.3); Red Cell Distribution Width 13.2 % (12.1-15.1); White Blood Count 7.2 10^3/uL (4.0-10.0)
[2021-05-19 05:39] LABS: Alanine Aminotransferase 13 U/L (0-41); Albumin Level 3.1 g/dL (3.5-5.2); Alkaline Phosphatase 76 IU/L (40-130); Anion Gap 13.8 (5-19); Aspartate Amino Transferase 7 U/L (0-40); Blood Urea Nitrogen 5 mg/dL (6-20); Calcium 8.2 mg/dL (8.5-10.5); Carbon Dioxide 24 mmol/L (22-29); Chloride 108 mmol/L (98-107); Globulin 3.1 g/dL (1.3-4.6); Glomerular Filtration Rate 170.2 mL/min (90-130); Glucose 111 mg/dL (65-115); Osmolality Calculated 292 mOsm/kg (285-295); Potassium 3.8 mmol/L (3.5-5.1); Sodium 142 mmol/L (136-145); Total Bilirubin 0.2 mg/dL (0.15-1.2); Total Protein 6.2 g/dL (6.6-8.7)
[2021-05-19] MEDS: gabapentin 400 mg Capsule 1200 MG PO (08:17)
[2021-05-19] MEDS: docusate sodium 100 mg Capsule PO (08:17)
[2021-05-19] MEDS: pantoprazole 40 mg SDV IVP (08:21)
--- NOTE | 2021-05-19 08:24 | PM.PN ---
Subjective Subjective: Interval history: The patient continues to feel better daily. He says he still has some abdominal discomfort but is having bowel movements, tolerating a low fiber diet, etc. Vitals/I&O/Wt Last Vital Signs Temp 98.2 F 05/19/21 08:00 Pulse 65 05/19/21 08:00 Resp 17 05/19/21 08:00 BP 135/76 05/19/21 08:00 Pulse Ox 93 05/19/21 08:00 05/18/21 05/19/21 05/19/21 22:59 06:59 14:59 Intake Total 846.667 / 3020.000 1763.333 / 3020.000 Balance 846.667 / 3020.000 1763.333 / 3020.000 Physical Exam Narrative: EXAM NARRATIVE: Minimal lower abdominal tenderness remains on exam. Data : 05/19/21 04:58 05/19/21 04:58 A&P Assessment and plan (1) Diverticulitis of large intestine with complication: The patient remains afebrile and the white blood cell count has normalized. I am okay with the patient being discharged on oral antibiotics at any time. He was instructed to follow-up with Dr. Rodas for further discussions regarding surgery. Status: Acute Attestations Medical Necessity Statement*: See admitting service's notation. Coding Level of Care Code Acute Application Integration Architect for Bianka Huitron Diagnoses Diverticulitis of large intestine with complication K57.32
--- NOTE | 2021-05-19 10:42 | PM.DCS ---
Discharge Providers Date of Admission: 05/15/21 17:44 Date of Discharge: May 19, 2021 Attending Provider at Admission: Colt Brush MD Attending Provider at Discharge: Nehemiah Cutler MD Primary Care Provider: Jesse Sifuentes MD Diagnoses at Discharge Discharge Diagnosis (1) Diverticulitis of large intestine with complication: Status: Acute Reason for Visit Reason for Visit: diverticulitis Hospital Course Hospital Course Is a 60-year-old male with history of cervical spine disease, recurrent diverticulitis last hospitalization was February 2021 also episode of outpatient diverticulitis treated with Cipro and Flagyl. Admitted on May 15, 2021 for diverticulitis. Patient was treated with IV antibiotics. General surgery was consulted. During his hospitalization his symptoms had improved he also had advancement of his diet. Surgery recommended colonoscopy upon resolution of acute symptoms. He will follow-up with Dr. Berman as outpatient. A prescription for Augmentin was given. Physical Exam Const: COMMON NORMALS: no acute distress and average body habitus Chest: COMMONS NORMALS: normal inspection of the chest Resp: COMMON NORMALS: normal respiratory effort and No retractions Cardio: COMMON NORMALS: regular rate and regular rhythm RATE: regular rate RHYTHM: regular rhythm GI: COMMON NORMALS: Soft to palpation and non-tender PALPATION: Yes Soft to palpation Discharge Data Data Completed and Pending: Completed Studies During Hospitalization Category Date Time Status CT abdomen pelvis w con* [id number] Urge nt Cat Scan 05/15/21 14:29 Completed XR abdomen min 2V [id number] Routine Exams 05/17/21 13:13 Completed Labs from last 24 hours 05/19/21 05/19/21 04:58 04:58 WBC 7.2 RBC 4.04 L Hgb 12.3 Hct 37.7 L MCV 93.3 MCH 30.4 MCHC 32.6 RDW 13.2 Plt Count 361 MPV 9.1 Neut % (Auto) 57.9 Lymph % (Auto) 29.6 [place] % (Auto) 7.2 Eos % (Auto) 4.3 Baso % (Auto) 0.7 Neut # (Auto) 4.18 Lymph # (Auto) 2.1 [place] # (Auto) 0.5 Eos # (Auto) 0.3 Baso # (Auto) 0.1 Nucleated RBC % (a uto) 0 Nucleated RBCs # 0.0 Sodium 142 Potassium 3.8 Chloride 108 H Carbon Dioxide 24 Anion Gap 13.8 BUN 5 L Creatinine 0.5 L GFR Calculation 170.2 H Glucose 111 Calculated Osmolal ity 292 Calcium 8.2 L Total Bilirubin 0.2 AST 7 ALT 13 Alkaline Phosphata se 76 Total Protein 6.2 L Albumin 3.1 L Globulin 3.1 Vitals: Last Vital Signs Temp 98.2 F 05/19/21 08:00 Pulse 65 05/19/21 08:00 Resp 17 05/19/21 08:00 BP 135/76 05/19/21 08:00 Pulse Ox 93 05/19/21 08:00 Discharge Plan Discharge Patient Disposition: Home Condition: Stable Prescriptions: New acetaminophen 325 mg Tablet 650 mg PO Q6H PRN (Reason: Mild/Mod Pain Or Temp >/= 101) Qty: 30 RF: 0 Augmentin 875-125 mg tablet 1 tab PO BID Qty: 14 RF: 0 Continued acetaminophen [Tylenol Extra Strength] 500 mg tablet 1,000 mg PO BID PRN (Reason: Pain) RF: 0 oxycodone-acetaminophen 10-325 mg tablet 1 tab PO BID MDD 2 PRN (Reason: Chronic pain) 28 Days Qty: 56 RF: 0 gabapentin 600 mg tablet 1,200 mg PO TID 30 Days Qty: 180 RF: 2 aspirin-sod bicarb-citric acid 324 mg Tablet, Effervescent 324 mg PO DAILY PRN (Reason: PRN) RF: 0 Discharge Orders: Discharge Order (Routine); Ordered 05/19/21 Ordered By: Nehemiah Cutler Discharge Diet: Usual diet Discharge Activity: Resume usual activity Patient Instructions: Opioid Safety Discharge Attestations Time Spent in Discharge Care*: less than 30 min Quality Metrics Clinical Quality Measures During this hospital stay, did patient experience: None Coding Level of Care Code Acute Chg FW DC note Diagnoses Diverticulitis of large intestine with complication K57.32
--- NOTE | 2021-05-20 12:00 | PC.SOCIAL ---
discharge follow up call made. patient is taking antibiotics are prescribed. has follow up appointment made with Dr. Sifuentes for 9-8. Feels tired but is doing better.
== END 2021-05-19 12:30 | disposition home or self-care (01) | DRG 392 ==
LOC: ER 14:13 → MEDSURG 19:37
PROVIDERS: Admitting Provider Family Medicine; Emergency Provider Emergency Medicine; PCP Family Medicine; Visit Provider Internal Medicine
DX: K57.20 Diverticulitis of large intestine with perforation and abscess without bleeding (principal); M54.12 Radiculopathy, cervical region; F17.200 Nicotine dependence, unspecified, uncomplicated; Z86.010 Personal history of colon polyps; Z79.891 Long term (current) use of opiate analgesic; Z79.899 Other long term (current) drug therapy
CPT/HCPCS: 36415; 74019; 74177; 80053; 81003; 83605; 83690; 83735; 84100; 84145; 85025; 86140; 96365; 96367; 96372; 96375; 99285; C9113; J0696; J1170; J1650; J2270; J2405; J2543; J7040; Q9967; S0030

== ENCOUNTER → 2021-06-01 09:58 | Outpatient (BNVA) | payer BC, SELFPAY | PROVIDERS: PCP Family Medicine; Visit Provider Anesthesiology Pain Medicine | DX: G89.29 Other chronic pain (principal); M54.12 Radiculopathy, cervical region; M48.02 Spinal stenosis, cervical region; M79.606 Pain in leg, unspecified; Z78.9 Other specified health status; Z98.890 Other specified postprocedural states; Z79.891 Long term (current) use of opiate analgesic | CPT/HCPCS: 99214 ==

== ENCOUNTER → 2021-07-02 14:58 | Outpatient (BNVA) | payer BC, SELFPAY | PROVIDERS: PCP Family Medicine; Visit Provider Surgery | DX: Z01.812 Encounter for preprocedural laboratory examination (principal); Z20.822 Contact with and (suspected) exposure to COVID-19 | CPT/HCPCS: 87635 ==

== ENCOUNTER 2021-07-07 09:44 | Day surgery (SDC) | payer BC, SELFPAY ==
[2021-07-05 14:07] VITALS: BMI 22.9
--- NOTE | 2021-07-07 10:00 | ANES.PREANE2 ---
Pre-Anesthetic Assessment Pre-Anesthetic Assessment: Height/Weight: Height 1.65 m Weight 62.596 kg Preop Diagnosis: Recurrent sigmoid diverticulitis Proposed Procedure: Operation Date: 07/07/21 11:15 Proposed Procedures p Colonoscopy 40467 K57.32(Not Applicable) - Gerardo Rodas MD Was Beta [place] taken within 24 hours: N/A Was Clonidine taken within 24 hours: N/A Social: Social History: Tobacco and No alcohol Exam: Pre-Anes Outpt Exam: alert, oriented x 3 and regular rate & rhythm Airway: Submandibular: WNL Cervical ROM: WNL MP: 2 Dentition: Chipped Pulmonary: Pulmonary: COPD Neuropsych: Neuropsych: Neuropathy Anesthetic Plan: ASA status: 3 Anesthesia: MAC Risk of > 500 ml blood loss (7ml/kg in children): No PFSH Anesthesia PFSH: Medical History Acute diverticulitis Cervical radiculopathy Colon polyps Diverticulitis Diverticulitis of large intestine with complication Diverticulosis Intestinal diverticular abscess Long-term use of high-risk medication Smoker Surgical History History of colonoscopy with polypectomy 06/2020 --[facility] Family History Mother Cancer Father Emphysema lung Denies family history of Anesthesia complication Bleeding disorder Social History Alcohol intake: never Lives independently: No History of recent travel: No Data Anesthesia Cardiac Studies: No Data to Display
[2021-07-07 10:20] VITALS: BP 137/86; PULSE 69; RESP 18; TEMP 36.4; O2SAT 99
[2021-07-07] MEDS: sodium chloride 0.9% 1,000 ML 30 ML IV (10:38)
--- NOTE | 2021-07-07 11:08 | P.HP_ITS ---
Same Day Surgery H&P Indication for Procedure/HPI DATE OF PROCEDURE: July 07, 2021 CHIEF COMPLAINT/INDICATIONFOR SURGICAL PROCEDURE: Colonoscopy PREOP DIAGNOSIS: Recurrent sigmoid diverticulitis PLANNED PROCEDRUE: Operation Date: 07/07/21 11:15 Proposed Procedures p Colonoscopy 23306 K57.32(Not Applicable) - Gerardo Rodas MD 04/29/2021 This is a 60 years old gentleman with recurrent episodes of sigmoid diverticulitis, first episode was back in August 2020 and second episode was April 11, 2021. Did not was hospitalized in outside facilities and he was worked up at [facility] for CT scans and endoscopies were done, last episode patient was transferred to [facility] where he had conservative measures and was placed on antibiotics with the plan to follow- up with general surgery for potential discussion of surgical intervention and address the potential benefits of sigmoid colectomy, patient reports that he had colonoscopy back in 2019 and polyps were removed yet there was a larger polyp that was taken out as well, currently denies any constitutional symptoms and he continues to be a chronic smoker and he is referred to my practice today for further evaluation, unfortunately none of the endoscopy report or CT scan discs or reports are available at the time of consultation 05/26/2021 Patient comes today after recent hospitalization for acute episode of sigmoid colon diverticulitis as he was evaluated and undergone a CT scan of the abdomen and pelvis 05/15/2021 that showed; 1. There is marked wall thickening of the distal descending and sigmoid colon suspicious for colitis and/or diverticulitis. There are colonic diverticula in this region. There is an intramural abscess in the sigmoid colon, and there is phlegmonous stranding superior to the sigmoid colon with trace free air. There is extensive associated edema and mild free fluid. Recommend colonoscopy upon resolution of acute symptoms to exclude underlying mass. 2. The bladder wall is thickened most prominent superiorly. This may be reactive. Correlate with urinalysis to assess for cystitis. 3. Approximately 50% narrowing of the proximal left renal artery. 4. Mild retroperitoneal lymphadenopathy. 5. Mild hepatomegaly. Patient comes today for follow-up as he has been treated conservatively, is s till due for a colonoscopy. He denies any nausea vomiting fevers or chills but yet he does complain of some left lower quadrant abdominal pain, and he was discharged on oral antibiotics Interim history 07/07/2021. Patient comes today for colonoscopy ROS All systems have been reviewed negative except as per the above or per problem list Medications/Allergies* Allergies/Adverse Reactions Allergy/AdvReac Type Severity Reaction Status Date / Time No Known Allergies Allergy Verified 07/07/21 11:09 Current Medications: Generic Name Dose Route Start Last Admin Trade Name Alonzo PRN Reason Stop Dose Admin Sodium Chloride 1,000 mls @ 30 mls/hr 07/07/21 10:00 07/07/21 10:38 Sodium Chloride 0.9% IV 07/08/21 09:59 30 mls/hr .Q24H JARRELL Administration Pertinent History/Comorbid Conditions* Medical History Acute diverticulitis Cervical radiculopathy Colon polyps Diverticulitis Diverticulitis of large intestine with complication Diverticulosis Intestinal diverticular abscess Long-term use of high-risk medication Smoker Surgical History (Updated 05/16/21 @ 10:12 by Rashi Celestin MD) History of colonoscopy with polypectomy 06/2020 --[facility] Family History (Updated 05/15/21 @ 17:06 by Colt Brush MD) Emphysema lung Father Cancer Mother Denies family history of Anesthesia complication Bleeding disorder Social History Alcohol intake: never Lives independently: No History of recent travel: No Pertinent Exam Findings alert, oriented x 3, regular rate & rhythm and procedure specific exam findings (Abdominal examination nontender nondistended soft) Recommendations Surgery/Procedure today (Colonoscopy with possible biopsy) Other Plans: Plan of care; After thorough history and physical examination and reviewing the chart, plan to perform screening colonoscopy. I discussed with the patient in details the risks,benefits,alternatives and indications.The risk of aspiration, bleeding, soft tissue injury, perforation of the colon and other potential concomitant complications were explained to the patient in details,also the potential need for Laproscoy/Laparotomy to repair any related complications including but not limited to colectomy and or Closotomy.The patient understood this well and did agree to proceed. Rationale was carefully and clearly discussed with the patient.Appropriate informed consent have been reviewed and signed All questions have been answered and all concerns have been addressed to patient's satisfaction. Verbal and written Instructions were given to the patient for colonoscopy prep Coding Level of Care Code Acute Petal Shaper Hand for Bianka Huitron
[2021-07-07 12:06] VITALS: BP 98/76; PULSE 78; RESP 16; TEMP 36.2; O2SAT 95
[2021-07-07 12:16] VITALS: BP 128/83; PULSE 54; RESP 16; O2SAT 98
--- NOTE | 2021-07-07 12:52 | ANE.PACU2 ---
Documented by User: Liberty Carmona CRNA 07/07/21 12:52 Inpatient post-anesthesia follow up: Airway intact: Yes Vital signs: Temperature 97.2 F Pulse Rate 54 Respiratory Rate 16 Blood Pressure 128/83 Pulse Oximetry 98 Oxygen Delivery Me thod Room Air Oxygen Flow Rate Fraction of Inspir ed Oxygen Hydration adequate: Yes Nausea and vomiting: No Mental status: Baseline
== END 2021-07-07 12:38 | disposition home or self-care (01) ==
PROVIDERS: PCP Family Medicine; Visit Provider Surgery
PROC: 0DJD8ZZ Inspection of Lower Intestinal Tract, Via Natural or Artificial Opening Endoscopic (ICD-10-PCS; CPT 45378; principal; 2021-07-07 11:15)
DX: K57.32 Diverticulitis of large intestine without perforation or abscess without bleeding (principal); D12.8 Benign neoplasm of rectum; K57.30 Diverticulosis of large intestine without perforation or abscess without bleeding; J44.9 Chronic obstructive pulmonary disease, unspecified; F17.210 Nicotine dependence, cigarettes, uncomplicated
CPT/HCPCS: 45380; 88305; J2704; J7030

== ENCOUNTER → 2021-07-15 15:07 | Outpatient (BNVA) | payer BC, SELFPAY | PROVIDERS: PCP Family Medicine; Visit Provider Surgery | DX: Z01.812 Encounter for preprocedural laboratory examination (principal); Z20.822 Contact with and (suspected) exposure to COVID-19 | CPT/HCPCS: 87635 ==

== ENCOUNTER 2021-07-20 13:14 | Inpatient (IN) | payer BC, SELFPAY ==
[2021-07-19 10:25] VITALS: BMI 22.9
[2021-07-20] VITALS (28 sets, daily range): BP systolic 111–171; BP diastolic 46–97; PULSE 74–110; RESP 16–25; TEMP 36.4–37; O2SAT 91–100
--- NOTE | 2021-07-20 | SCC_ITS ---
Procedure Done: 1. Cystoscopy with LEFT retrograde ureteropyelogram 2. Left ureteral stent placement (8.5 Polish by 26 cm double-pigtail string attached distally) 20.0 seconds of fluoroscopic guidance, for a cumulative dose of 3.55 mGy, was provided to Dr. Olivo by the radiology department. C-arm images of the abdomen/pelvis were saved for the patient's permanent record. [facility]
--- NOTE | 2021-07-20 06:23 | W.PM.OPSUD ---
Surgery/Procedure H&P Update DATE OF PROCEDURE: July 20, 2021 DATE H&P PERFORMED: 07/12/21 H&P UPDATE INFORMATION: I have reviewed H&P completed within last 30 days, I have examined patient prior to procedure and Changes to prior documentation as noted here CHANGES TO PREVIOUS DOCUMENTATION: I did explain and emphasize on the potential side effects related to smoking including but not limited to pneumonia, delayed wound healing, DVT formation and pulmonary embolism. Patient understands all of the above and he agrees to proceed with surgery. I do appreciate urology input and participating taking care of Mr. Rodrigez PREOP DIAGNOSIS: Chronic sigmoid diverticulitis and sigmoid colon polyp PRIMARY INDICATION FOR PROCEDURE: The same PLANNED PROCEDURE: Operation Date: 07/20/21 07:00 Proposed Procedures p Laparoscopic Sigmoidectomy poss Open Flexsigmodioscopy [id number] 57588 K63.5(Not Applicable) - Gerardo Rodas MD
--- NOTE | 2021-07-20 06:49 | ANES.PREANE2 ---
Pre-Anesthetic Assessment Pre-Anesthetic Assessment: Height/Weight: Height 1.65 m Weight 62.596 kg Temp Pulse Resp BP Pulse Ox 97.5 F L 74 18 137/82 98 07/20/21 06:11 07/20/21 06:11 07/20/21 06:11 07/20/21 06:11 07/20/21 06:11 Preop Diagnosis: Chronic sigmoid diverticulitis and sigmoid colon polyp Proposed Procedure: Operation Date: 07/20/21 07:00 Proposed Procedures p Laparoscopic Sigmoidectomy poss Open Flexsigmodioscopy [id number] 82249 K63.5(Not Applicable) - Gerardo Rodas MD Familial anesthetic complications: none Was Beta Barrington taken within 24 hours: N/A Was Clonidine taken within 24 hours: N/A Last intake: Intake Last Liquid Date 08/16/21 Last Liquid Time 22:00 Last Solid Date 07/18/21 Last Solid Time 19:00 Social: Social History: Tobacco and No alcohol Exam: Pre-Anes Outpt Exam: alert, oriented x 3, clear to auscultation bilaterally and regular rate & rhythm Airway: Cervical ROM: WNL MP: 2 Dentition: Chipped Pulmonary: Pulmonary: COPD Musc/skel: Musc/skel: OA/DJD Neuropsych: Neuropsych: Neuropathy Anesthetic Plan: ASA status: 3 Anesthesia: General Risk of > 500 ml blood loss (7ml/kg in children): No PFSH Anesthesia PFSH: Medical History Acute diverticulitis Cervical radiculopathy Colon polyps Diverticulitis Diverticulitis of large intestine with complication Diverticulosis Intestinal diverticular abscess Long-term use of high-risk medication Smoker Surgical History History of colonoscopy with polypectomy 06/2020 --[facility] Family History Mother Cancer Father Emphysema lung Denies family history of Anesthesia complication Bleeding disorder Social History (Updated 07/19/21 @ 10:22 by Lupe Polo) Smoking and tobacco status: current every day smoker cigarettes [ Other cigarette details: 10-15 CIGS PER DAY ] Alcohol intake: never Lives independently: No History of recent travel: No Data Anesthesia Cardiac Studies: No Data to Display
[2021-07-20] MEDS: heparin 5,000 unit/mL INJ 1 mL 3000 UNIT SUBCUT (06:50)
[2021-07-20] MEDS: sodium chloride 0.9% 1,000 ML 30 ML IV (06:50)
[2021-07-20] MEDS: acetaminophen 1,000 MG/100 ML PIGGYBACK 400 MG IV ×3 (06:50→23:14)
--- NOTE | 2021-07-20 06:54 | P.CONIM_ITS ---
Providers/Reason For Consult Consulting Physician/Specialty*: Urology/Olivo Reason for Consult*: Need for ureteral stent for general surgery Attending Physician: Gerardo Rodas MD Primary Care Provider: Jesse Sifuentes MD History of Present Illness History of Present Illness Farrukh Rodrigez is a 61 year old male evaluated for the first time this morning at the request of Dr. Rodas for consideration of a ureteral stent placement intraoperatively for identification of the left ureter during laparoscopic bowel resection. Patient has a history of BPH type symptoms. Denies any history of urethral stricture, kidney stones, difficult catheter placement etc. I did review his CT scan and there was significant inflammatory change from the colon around the area of the left ureter. Reviewed the case with Dr. Rodas and the plan is to proceed with cystoscopy left ureteral stent placement possible bilateral possible retrograde. Informed consent was obtained after detailed explanation of the procedure, rationale for it, benefits risks and a discussion with patient and . Review of Systems Const: Denies: fever(s) or chills Card: Denies: chest pain or palpitations Resp: Denies: dyspnea, productive cough or wheezing GI: Reports: abdominal pain : Denies: flank pain or hematuria Musc: Denies: joint warmth Psych: Denies: memory loss All/Imm: Denies: acute wheezing Meds/Allergies Home Medications and Allergies Home Medications Medication Instructions Recorded Confirmed Last Taken Type gabapentin 600 mg tablet 1,200 mg PO TID 30 Days #180 tab 02/09/21 07/20/21 07/20/21 04:00 Rx oxycodone-acetaminophen 10 mg-325 1 tab PO BID PRN 28 Days #56 tab 06/01/21 07/20/21 07/19/21 18:00 Rx mg tablet MDD 2 erythromycin 500 mg tablet 500 mg PO DAILY 1 Days #3 tab 07/16/21 07/20/21 07/19/21 22:00 Rx neomycin 1 g PO DIRECTED 07/19/21 07/20/21 07/19/21 22:00 History Allergies Allergy/AdvReac Type Severity Reaction Status Date / Time No Known Allergies Allergy Verified 07/19/21 10:22 Current Medications Current Medications Generic Name Dose Route Start Last Admin Trade Name Freq PRN Reason Stop Dose Admin Sodium Chloride 1,000 mls @ 30 mls/hr 07/20/21 06:00 07/20/21 06:50 Sodium Chloride 0.9% IV 07/21/21 05:59 30 mls/hr .Q24H JARRELL Administration PFSH Acute PFSH: Medical History Acute diverticulitis Cervical radiculopathy Colon polyps Diverticulitis Diverticulitis of large intestine with complication Diverticulosis Intestinal diverticular abscess Long-term use of high-risk medication Smoker Surgical History History of colonoscopy with polypectomy 06/2020 --[facility] Family History Mother Cancer Father Emphysema lung Denies family history of Anesthesia complication Bleeding disorder Social History Smoking and tobacco status: current every day smoker cigarettes [ Other cigarette details: 10-15 CIGS PER DAY ] Alcohol intake: never Lives independently: No History of recent travel: No Vitals/I&O/Wt Last Vital Signs Temp 97.5 F L 07/20/21 06:11 Pulse 74 07/20/21 06:11 Resp 18 07/20/21 06:11 BP 137/82 07/20/21 06:11 Pulse Ox 98 07/20/21 06:11 Weight last 48 hrs Weight 138 lb Physical Exam Const: COMMON NORMALS: no acute distress, alert and well nourished GENERAL APPEARANCE: well kempt and well developed ORIENTATION/CONSCIOUSNESS: not confused HENMT: COMMON NORMALS: normocephalic and atraumatic HEAD & SCALP: normocephalic and atraumatic Eye: COMMON NORMALS: conjunctivae normal and no scleral icterus CONJUNCTIVA: Yes conjunctivae normal Neck/C-Spine: COMMON NORMALS: full ROM GENERAL: Yes normal visual inspec tion Lymph: LYMPHATIC: no lymphadenopathy noted Resp: COMMON NORMALS: normal respiratory effort EFFORT & INSPECTION: No labored and No Actively coughing GI: COMMON NORMALS: Soft to palpation, non-tender and no masses PALPATION: Yes Soft to palpation : COMMON NORMALS: Yes no CVA tenderness, Yes normal external exam, Yes Testes normal and Yes scrotum normal BLADDER/KIDNEY EXAM: Yes no CVA tenderness MEATUS: meatus normal Back/Pelvis: COMMON NORMALS: no CVA tenderness Neuro: SENSORIUM/ORIENTATION: Yes alert Psych: COMMON NORMALS: mental status grossly normal APPEARANCE: Yes grossly normal and Yes well kempt ATTITUDE: Yes calm and Yes engaged Skin: COMMON NORMALS: no rashes or lesions noted and no jaundice GENERAL SKIN EXAM: no rashes or lesions noted A&P Assessment and plan (1) Sigmoid diverticulitis: Request for ureteral stent for ureteral identification during laparoscopic sigmoidectomy. Reviewed with Dr. Rodas. Left ureteral stent requested. Possible bilateral Status: Chronic Consult Attestations Medical Necessity Statement: See attending Coding Level of Care Code Acute Supervisor Paper Coating for g Fwd Diagnoses Sigmoid diverticulitis K57.32
--- NOTE | 2021-07-20 06:58 | SC_ITS ---
WS: [id number] INTRAOPERATIVE TECHNIQUE: 4 Spot fluoroscopic images for intraoperative purposes. FLUOROSCOPY TIME: 20.0 seconds CLINICAL INFORMATION: intra-op COMPARISON: None. FINDINGS: Fluoroscopy used for Left double-J ureteral stent placement. SC/C-arm FL for Urology IMPRESSION: Images obtained for intraoperative purposes.
--- NOTE | 2021-07-20 07:03 | P.OP_ITS ---
Operative Report Date of procedure: July 20, 2021 Pre-op Diagnosis: Chronic sigmoid diverticulitis and sigmoid colon polyp Pre-op Diagnosis: Request for left ureteral stent. Post-op diagnosis: same Procedure Done: 1. Cystoscopy with LEFT retrograde ureteropyelogram 2. Left ureteral stent placement (8.5 [place] by 26 cm double-pigtail string attached distally) Pathology: none sent Surgeon: Geovani Anesthesia: General Urine output: Not measured Complications: None Findings: Normal LEFT retrograde ureteropyelogram Stent placed without difficulty. String left on for removal postop if uneventful procedure Condition: stable Disposition: other (Patient turned back over to Dr. Rodas for his procedure.) Brief History: Mr. Rodrigez is a 61-year-old white male who is scheduled for laparoscopic possible open left sigmoidectomy for sigmoid diverticulitis. Due to the inflammatory changes identified on CT scan Dr. Rodas requested a left ureteral stent placement for intraoperative ureteral dilation. Procedure: After routine preoperative evaluation examination and obtaining of informed consent he was taken to the operating suite on 07/20/2021 where general anesthesia was administered without difficulty after appropriate timeout was performed, SCDs confirmed to be functioning, preoperative antibiotics administered, beta-kirill protocol confirmed. Prepped and draped in usual sterile fashion in dorsolithotomy position paying careful attention to avoiding pressure points. 21 B[place] cystoscope with 30 degree lens was introduced to the urethra meatus and advanced into the bladder under videoscopy. Bladder was systematically examined. An 8 [place] cone-tip catheter was intubated into the left ureteral orifice for left retrograde ureteropyelogram which demonstrated normal course and caliber of the left ureter without evidence of hydronephrosis or filling defects. Flexible tip guidewire was advanced up the left ureter easily curling in the area of the renal pelvis and an 8.5 [place] by 26 cm double-pigtail stent was advanced over the guidewire through the cystoscope into appropriate position as confirmed via fluoroscopy and cystoscopy. The string was left attached. Position was confirmed with fluoroscopy and cystoscopy and the procedure was completed. A Marino catheter was placed and the string was left emanating from the urethral meatus. Tolerated procedure well without complications. Patient was then turned over to Dr. Rodas for his procedure. PLANS: Assuming no ureteral issues intraoperatively the stent can be removed postoperatively with the string; instructions provided to the team.
[2021-07-20] MEDS: piperacillin-tazobactam 3.375 GM in sodium chloride 0.9% (plus) 50 ML IV ×2 (07:06→19:48)
[2021-07-20] MEDS: iohexol 300 mg/mL 50 mL Btl (OR ONLY) XX (07:25)
--- NOTE | 2021-07-20 08:33 | SUR.OPER ---
Called and notified her of surgical start and progress.
--- NOTE | 2021-07-20 09:52 | SUR.OPER ---
Called and notified her of surgical progres
[2021-07-20] MEDS: metroNIDAZOLE IV 500 MG/100 ML PREMIX 100 MG IV (11:00)
--- NOTE | 2021-07-20 12:00 | P.OP_ITS ---
Operative Report Date of procedure: July 20, 2021 Pre-op Diagnosis: Chronic sigmoid diverticulitis and sigmoid colon polyp Post-op diagnosis: other (Chronic sigmoid diverticulitis) Post-op Findings: Extensive scarring of the sigmoid colon towards the left lateral wall encasing the left ureter Procedure Done: laparoscopic sigmoid colectomy with colorectal anastomosis Specimens removed/disposition: 1-Sigmoid colon resection with sutures marked proximal 2-Staple line 3-Proximal and distal Staple line Surgeon: Gerardo Rodas Plastic Panel Installer: Surgical techs Johann/medical surgical tech student Vivian Dobson Circulating nurses Jossie Muniz and No Melissa Anesthesia: General (GETA porcelain enameling supervisor Lindsay) Estimated blood loss (mL): 25 IV fluids: 1100 mL of crystalloid 250 mL of 5% albumin Urine output (mL): 200 Condition: stable Disposition: floor Procedure: The patient was brought to the operating room and was placed in a supine position on the operating room table. General endotracheal anesthesia was induced. Time-out was done verifying the patient's name/date of /planned procedure and destination after the procedure, all were in agreement. SCDs confirmed to be functioning, preoperative antibiotics administered per protocol, and beta kirill protocol was confirmed. The patient was then moved to a modified lithotomy position. Left ureteric stent was placed by Dr. Olivo prior to the procedure to save guard the left ureter ureter. Please find separate dictation with urology service A Marino catheter was inserted revealing clear urine. I then after urology has done with their part I started my procedure.Prep of the rectum with Betadine flushes was achieved,The abdomen and perineum were prepped and draped in a sterile fashion. Started by longitudinal skin incision supraumbilical using a Cary trocar technique safe entry to the abdominal cavity was achieved verified by using 10 mm zero degree laparoscopy, switched to a 30? scope, a 12 mm trocar was inserted at the right lower direct visualization,followed by a 5 mm trocar was inserted at the right upper quadrant under direct visualization and another 5 mm trocar was inserted to the left side of the abdomen under direct visualization. I started by mobilizing the sigmoid colon , including the inked portion that signifies the distal part to the pathology,through the line of Toldt using the LigaSure and the left ureter was identified with the stent within.,I was able to use sharp and blunt dissection to mobilize the sigmoid colon.Noticed to have extensive scarring of the sigmoid colon with intense chronic inflammatory process and desmoid reaction, encasing the left ureter, time was taken with very careful dissection took place to save the left ureter and the stent continued to be identified. Without violation of the integrity of the left ureter. Advertent Resoctostomy was sustained during dissection and a [id number] silk suture was placed. Followed by a purse string 2-0 silk suture for control and for countertraction followed by application of [place] 60 mm green loads was fired with intact staple line. There was minimal spillage. In the interim an additional 5 mm trocar was inserted at the left side of the abdomen to help with countertraction. With the countertraction was achieved I was able to identify and skeletonized the SUNNY pedicle and 45 mm vascular GI load was applied to secure the SUNNY pedicle as a high ligation to maximize the lymph node basins of the specimen. At that point I continued dissection and mobilizing the left side of the colon up to the splenic flexure. At that point I created transverse incision at the left 5 mm trocar site were and the wound protection device was placed, I was able to deliver the distal sigmoid colon Inclusive for the inflammatory mass, and the [place] 60 mm blue load was fired and rest of the mesentery was divided by LigaSure device and the specimen was marked by sutures to identify proximal component and passed to the circulating nurse for pathology. Attention was deviated at the proximal colon were the staple line was taken off with Mio scissors. With good bleeding edges. The colon was sized and a size 29 EEA stapler was decided upon. The anvil was sewn into the proximal sigmoid with a running suture of 3-0 Prolene followed by 3-0 Vicryl ,that part of the colon was dropped back into the abdominal cavity. And a good seal was obtained by the wound protection device. Gloves were changed at this point.The EEA was introduced through the rectum by my partner Dr. Anderson as he scrubbed in and join me at that point and was opened through the distal staple line.The anvil was connected and was slowly screwed down until the 2 limbs of bowel were contacting each other with good orientation of the mesentery of the colon. The Surrounding structures were again confirmed to be out of the area and the EEA was fired. The EEA was removed and 2 colonic rings of tissue were found in the EEA with mild attenuation of the tissues at the periphery. Both doughnuts as well as the proximal sigmoid staple line were sent to pathology. The pelvis was again irrigated and while some irrigation was still in the pelvis a flexible sigmoidoscope was used to inflate the distal colon via the rectum, having placed a long blade Leni bowel was clamped proximal to the staple line on the sigmoid. The colon filled very well and no air leaks were seen under a level of saline in the pelvis.Further irrigation was carried out.The abdomen was then irrigated.No ongoing bleeding or other problems were seen anywhere in the abdomen. Bilateral TAP (transversus abdominous plain peripheral nerve block )block using Exparel 20 mL Exparel 40 ml Normal saline 20 ml bupivacaine 0.25% 30 mL on each side injected 20 mL injected the port sites I elected to place a figure of eight 2-0 silk suture at the seromuscular layer of the anterior colorectal anastomosis. I asked my circulating nurse to remove the ureteric stent while under the laparoscopic view and that was taken out without complications. And without jeopardizing the integrity of the left ureter. All trocars were taken out under direct visualization and closure of the left lateral incision was done in 2 layers using PDS and Vicryl sutures, as well as the supraumbilical trocar site and the right lower quadrant 12 mm trocar site were closed by #1 PDS sutures using fascial closure device prior to deflation of gas under direct visualization and all trocar sites were closed by skin genevieve, dressing was applied Counts of sponges,needles and instruments were completed at the end of the procedure. Patient tolerated the procedure well and got extubated and was taken directly to the PACU area I was present for the whole entire procedure. Due to medical necessity. Plastic Panel Installer surgeon is required to assist in this procedure in the form of; Introduced the EEA via the anus, and assist in performing colorectal anastomosis, followed by introduction of the flex sigmoidoscopy to rule
[2021-07-20] MEDS: HYDROmorphone 1 mg/mL INJ 1 mL 0.5 MG IVP ×2 (12:25→13:22)
[2021-07-20] MEDS: midazolam 1 mg/mL INJ 2 mL IVP (12:43)
--- NOTE | 2021-07-20 12:49 | SUR.PHASEI ---
1213 PT TO PACU RESTLESS ROLLING IN BED , PT AWAKE ALERT FINALLLY POSITIONS SELF ON RT SIDE, GOOD RESP EFFORT NOTED WARM BLANKETS TO PT X 3 ORDERS RECIEVED TO START WITH DILAUDID FOR PAIN IN PHASE 1 RECOVERY 1225 PT ANXIOUS RESTLESS C/O OF ABD PAIN SEE MED GIVEN 1245 PT STILL RESTLESS ROLLING IN BED SEE VERSED GIVEN ORDERED 1255 PT RESTING MORE QUIETLY PT ONLY COMPLAINT NOW IS ( I HAVE TO PEE) PT REORIENTED TO JACKSON CATHETER REPEATEDLY, VSS.
--- NOTE | 2021-07-20 13:10 | SUR.PHASEI ---
PT RESTING QUIETLY NOW, JACKSON TO DD WITH DARK BLOOD TINGED URINE, DR GONZALEZ AWARE, PATENT AND URINE NOTED IN TUBING WELL STAT LOCK TO RT INNER THIGH. 5 SITES TO ABD DRESSING D/I. PT HAS NASAL CANNULA O2 AT 3L SATS 100%
--- NOTE | 2021-07-20 13:12 | SUR.PHASEI ---
PT OUT OF PHASE 1 AND NOW IN HOLDING WAITING TO GIVE REPORT TO FLOOR NURSE.
--- NOTE | 2021-07-20 13:27 | SUR.PHASEI ---
1320 PT AWAKES STARTS SHAKING PURPOSEFULLY AND STAATES ( IT HURTS , I HAVE TO PEE) SEE MED GIVEN, PT JACKSON PATENT OF RED URINE NO CLOTS IN APPROX 100ML SINCE LAST EMPTIED.
--- NOTE | 2021-07-20 14:03 | PC.NURSE ---
OR NOTE UP VIA BED WITH VANCE RN - ASST TO BED X3 - 02 2LNC - AP RRR - LUNGS CTA THROUGHOUT - ABD SOFT WITH SOME DISTENTION - BS HYPOACTIVE - JACKSON WITH BLOODY URINE NOTED - X5 BANDAIDS TO ABD WITH SMALL AMOUNT OF DRAINAGE NOTED - MEDINA SCD'S IN PLACE - PT SHAKING - AT SIDE AND SAYS PT CONSTANTLY SHAKES LEGS
[2021-07-20] MEDS: lactated ringers 1,000 ML 125 ML IV ×2 (14:09→22:06)
[2021-07-20] MEDS: HYDROmorphone 1 mg/mL INJ 1 mL IVP ×5 (14:10→22:33)
--- NOTE | 2021-07-20 14:15 | SUR.PHASEI ---
1350 PT TO ROOM 269 NO FAMILY WITH PT, HANDOFF AT BEDSIDE TO EMILY RN PT AWAKE ALERT ASSISTED IN TRANSFER TO BED WITH 3 NURSES ASSISTING
[2021-07-20] MEDS: famotidine 20 mg/2 mL INJ IVP (23:14)
[2021-07-21] VITALS (14 sets, daily range): BP systolic 113–148; BP diastolic 75–82; PULSE 83–106; RESP 16–20; TEMP 36.4–36.8; O2SAT 94–99
--- NOTE | 2021-07-21 00:23 | PC.NURSE ---
The patient was noted to have bright red blood in his smith bag after coming to the floor on day shift, this nurse noted it was started to slow down and clear up, a new smith bag was placed and there is clear yellow urine noted to be in the bag, when this nurse changed the bag it had 250mL of bright red blood and urine in it.
[2021-07-21] MEDS: HYDROmorphone 1 mg/mL INJ 1 mL IVP ×3 (01:20→05:51)
[2021-07-21] MEDS: piperacillin-tazobactam 3.375 GM in sodium chloride 0.9% (plus) 50 ML IV ×3 (03:18→19:51)
[2021-07-21] MEDS: lactated ringers 1,000 ML 125 ML IV ×3 (05:51→23:12)
--- NOTE | 2021-07-21 06:30 | P.PN_ITS ---
Subjective Subjective: Interval history: Overall patient feels better. Urine is clearing up and at some point it cleared up completely according to the nursing staff yet it did engine turner to be pink through the night. Heparin was held. Nursing staff reports patient had blood-tinged liquidy bowel movement but no clots. Medications: Reviewed: Yes Vitals/I&O/Wt Last Vital Signs Temp 98.3 F 07/21/21 04:29 Pulse 85 07/21/21 04:29 Resp 18 07/21/21 05:51 BP 133/80 07/21/21 04:29 Pulse Ox 95 07/21/21 04:29 07/20/21 07/20/21 07/21/21 14:59 22:59 06:59 Intake Total 1650 / 1650 1093.75 / 2743.75 1118.75 / 3862.50 Output Total 575 / 575 500 / 1075 250 / 1325 Balance 1075 / 1075 593.75 / 1668.75 868.75 / 2537.50 Weight last 48 hrs Weight 138 lb Physical Exam Narrative: EXAM NARRATIVE: Patient is conscious alert oriented X3 BMI 23 Head and neck examination PERRLA no masses no cervical lymphadenopathy no jaundice Cardiac examination audible S1-S2 no murmurs no gallops no arrhythmias Chest is clear bilateral,abscence of Rhonchi or wheezes,no surgical emphysema Abdomen nontender except at the incision sites nondistended soft no organomegaly guarding or rigidity/no signs of peritonitis. Bowel sounds are positive Marino catheter in place with pink output Extremities no cyanosis no clubbing no edema Urinary Catheter Management^: Marino: Cath Placed During This Visit: yes Reason for Continuing Indwelling Catheter: Perioperative Use in Selected Surgeries Urinary Catheter Date of Insertion: 07/20/21 Urinary Catheter Time of Insertion: 08:23 Data : 07/21/21 07:09 07/21/21 07:09 A&P Assessment and plan (1) S/P laparoscopic colectomy: Assessment 61 years old gentleman status post laparoscopic sigmoid colectomy with colorectal anastomosis. 07/20/2021 Plan Continue n.p.o. status Encourage ambulation Marino catheter care and education for the patient to avoid pulling on the catheter Incentive spirometer every hour We will add Flagyl every 8 hours IV We will add morphine 2 mg IV every 2 hours as needed to help with breakthrough pain Assurance and education All questions have been answered and all concerns have been addressed to patient's satisfaction. Status: Acute Attestations Medical Necessity Statement*: Patient requiring inpatient hospitalization passing 2 midnights for perioperative care and pain control and requiring IV antimicrobial therapy Time Spent in Patient Care: 16 - 35 minutes Coding Level of Care Code Acute Manufacturers Service Representative for g Fwd Diagnoses S/P laparoscopic colectomy Z90.49
--- NOTE | 2021-07-21 07:04 | PC.NURSE ---
AM NOTE DR CHRISTIANSON PREVIOUSLY IN ROOM WITH NOC NURSE - NOTED PT TO HAVE LIGHT PINK URINE AFTER CLEARING THROUGHOUT NIGHT PER NOC NURSE - WILL MONITOR - UPON ARRIVAL TO ROOM PER THIS NURSE PT UP IN BATHROOM HOLDING JACKSON AND HAD REMOVED OIL FIELD TECHNICIAN - ASSISTED PT BACK TO BED - AGAIN EDUCATED PT TO NOT BE UP PER SELF DUE TO POSSIBLE SELF INFLICTED TRAUMA TO JACKSON - PT DOES NOT VERBALIZE UNDERSTANDING - TELE REPLACED - PT RETURNED TO BED AND BED CHECK SET
[2021-07-21 07:39] LABS: Hematocrit 37.2 % (42.0-52.0)
[2021-07-21] MEDS: metroNIDAZOLE IV 500 MG/100 ML PREMIX 100 MG IV ×2 (07:39→16:28)
[2021-07-21] MEDS: morphine 4 mg/mL SDV 1 mL 2 MG IVP ×4 (07:39→14:13)
[2021-07-21] MEDS: acetaminophen 1,000 MG/100 ML PIGGYBACK 400 MG IV (07:40)
[2021-07-21 07:48] LABS: Anion Gap 14.5 (5-19); Blood Urea Nitrogen 17 mg/dL (8-23); Calcium 8.1 mg/dL (8.5-10.5); Carbon Dioxide 22 mmol/L (22-29); Chloride 106 mmol/L (98-107); Creatinine Clr Calc Pharmacy 68.8204; Glomerular Filtration Rate 76.2 mL/min (90-130); Glucose 117 mg/dL (65-115); Osmolality Calculated 289 mOsm/kg (285-295); Potassium 4.5 mmol/L (3.5-5.1); Sodium 138 mmol/L (136-145)
--- NOTE | 2021-07-21 10:00 | PC.CHAP ---
Pastoral Care Encounter/Spiritual Assessment Type of Contact [] Declined circuit manager visit [] Patient/Family/Request visit [] Outpatient visit [] Follow-up visit [] Physician referral [] Code/Alert [x] Routine visit [] Staff referral [] Actively dying [] Patient sleeping [] Family support [] [] Out of room [] Palliative care [] [] Receiving care in room [] Pre-surgical visit [] Trauma [] Long length of stay [] ICU visit [] Other: Relational/Emotional Strength [x] Patient feels connected with others/family/visitors/staff [] Distress [] Loneliness/isolation [] Abandonment Spirituality of Patient [x] Person of [place] []x Attends Anglican of their [place] [x] Believes in Prayer [] Reads Bible or Sikhism materials [] There are Spiritual issues to be addressed Adult Day Care Worker Interventions [x] Prayer [] Active listening [] Non-anxious presence [] Spiritual/emotional support [] Crisis/trauma care [] Spiritual counseling [] Bereavement support [] Provided bereavement packet [] Provided Bible/devotional materials [] Provided toy/stuffed animal, coloring book to patient or family member [] Provided Communion [] Anointing/[place] [] Salvation [x] Completed spiritual assessment [] Other: Impact on Illness or Injury [] Angry [] Fearful [] Anxious [] Often cries [] Exhaustion [] Unable to work [] Unable to attend pentecostalism [] Unable to walk/stand [] Unable to read [] Unable to drive [] Unable to eat/drink [] Unable to sleep [] Unable to be with family [] Patient intubated [] Other: Summary patient has pain Time spent with patient 15 min
[2021-07-21] MEDS: famotidine 20 mg/2 mL INJ IVP ×2 (11:15→23:08)
--- NOTE | 2021-07-21 11:27 | PC.NURSE ---
Addendum entered by Vivian Sanches RN 07/21/21 11:28: ERROR - WRONG PT Original Note: DIALYSIS PT CURRENTLY IN DIALYSIS - NO NEEDS VOICED
--- NOTE | 2021-07-21 12:15 | PC.NURSE ---
URINE URINE IN TUBING NOTED TO BE LIGHT PINK - MUCH IMPROVED FROM BEGINNING OF SHIFT
--- NOTE | 2021-07-21 16:13 | PC.NURSE ---
DR MEGHAN VALDES NOTIFIED OF PATIENT REQUEST FOR PAIN MEDICATION TO BE INCREASED/CHANGED - RATES PAIN AT 04/27 STATES THIS MORPHINE IS NOT HELPING - DR TO PLACE NEW ORDERS
[2021-07-21] MEDS: morphine 4 mg/mL SDV 1 mL IVP ×2 (16:27→23:09)
[2021-07-21] MEDS: ondansetron 2 mg/ML SDV 2 mL 4 MG IVP (16:33)
--- NOTE | 2021-07-21 18:21 | PC.NURSE ---
END OF SHIFT SUMMARY PT HAS CONTINUED TO REQUEST PAIN MEDICATION EVERY 2 HOURS - DR CHRISTIANSON UPDATED TO PTS CONDITION - LAST ROUNDING PT NOTED IT WAS MORE BACK PAIN THAN ABD PAIN - SMALL AMOUNT OF OLD DRAINAGE REMAINS ON BANDAGES - URINE IN JACKSON IS NEARLY CLEAR AT PRESENT TIME - PT HAS AMBULATED LASSITER APPROX 4 TIMES - JOEL WELL - CURRENTLY UP IN CHAIR - WARM, MOIST HEAT APPLIED TO BACK - ABD REMAINS SOFT WITH SLIGHT DISTENTION WITH BOWEL SOUNDS PRESENT
[2021-07-21] MEDS: LORazepam 2 mg/mL INJ 1 mL 0.5 MG IVP (18:28)
[2021-07-22] VITALS (12 sets, daily range): BP systolic 120–170; BP diastolic 67–83; PULSE 74–106; RESP 16–20; TEMP 36.8–37.6; O2SAT 92–97
[2021-07-22] MEDS: metroNIDAZOLE IV 500 MG/100 ML PREMIX 100 MG IV ×3 (00:26→17:41)
[2021-07-22] MEDS: morphine 4 mg/mL SDV 1 mL IVP ×6 (03:58→21:31)
[2021-07-22] MEDS: LORazepam 2 mg/mL INJ 1 mL 0.5 MG IVP ×2 (04:16→21:31)
[2021-07-22] MEDS: piperacillin-tazobactam 3.375 GM in sodium chloride 0.9% (plus) 50 ML IV ×3 (04:24→19:14)
[2021-07-22 06:09] LABS: Hemoglobin 10.1 g/dL (11.7-16.6)
--- NOTE | 2021-07-22 06:13 | P.PN_ITS ---
Subjective Subjective: Interval history: Patient overall feels slightly better. Morphine was increased to have patient's pain under better control. Also Ativan was added for anxiety. Patient had a small bowel movement. Medications: Reviewed: Yes Vitals/I&O/Wt Last Vital Signs Temp 99.6 F 07/22/21 04:57 Pulse 106 H 07/22/21 04:57 Resp 18 07/22/21 04:57 BP 120/67 07/22/21 04:57 Pulse Ox 92 07/22/21 04:57 07/21/21 07/21/21 07/22/21 14:59 22:59 06:59 Intake Total 1150 / 1150 1150 / 2300 150 / 2450 Output Total 850 / 850 1600 / 2450 Balance 1150 / 1150 300 / 1450 -1450 / 0 Physical Exam Narrative: EXAM NARRATIVE: Patient is conscious alert oriented X3 BMI 23 Head and neck examination PERRLA no masses no cervical lymphadenopathy no jaundice Cardiac examination audible S1-S2 no murmurs no gallops no arrhythmias Chest is clear bilateral,abscence of Rhonchi or wheezes,no surgical emphysema Abdomen nontender except at the incision sites nondistended soft no organomegaly guarding or rigidity/no signs of peritonitis. Bowel sounds are positive. Dressing was taken down incisions are clean dry and intact and skin genevieve in place Marino catheter in place with clear urine Extremities no cyanosis no clubbing no edema Urinary Catheter Management^: Marino: Cath Placed During This Visit: yes Reason for Continuing Indwelling Catheter: Perioperative Use in Selected Surgeries Urinary Catheter Date of Insertion: 07/20/21 Urinary Catheter Time of Insertion: 08:23 Data : 07/23/21 06:31 07/23/21 06:31 A&P Assessment and plan (1) S/P laparoscopic colectomy: Assessment 61 years old gentleman status post laparoscopic sigmoid colectomy with colorectal anastomosis. 07/20/2021 Plan We will start the patient on clear liquid diet slowly Encourage ambulation Continue Marino catheter care and education for the patient to avoid pulling on the catheter Incentive spirometer every hour Continue Flagyl every 8 hours IV Switch fluids to maintenance fluids at 75 mL/h Assurance and education All questions have been answered and all concerns have been addressed to patient's satisfaction. Status: Acute Attestations Medical Necessity Statement*: Patient requiring inpatient hospitalization passing 2 midnights for perioperative care and pain control and requiring IV antimicrobial therapy Time Spent in Patient Care: 16 - 35 minutes Coding Level of Care Code Acute Cook Fishing Vessel for Chg Fwd Diagnoses S/P laparoscopic colectomy Z90.49
[2021-07-22 06:34] LABS: Anion Gap 11.6 (5-19); Blood Urea Nitrogen 13 mg/dL (8-23); Calcium 8.1 mg/dL (8.5-10.5); Carbon Dioxide 25 mmol/L (22-29); Chloride 108 mmol/L (98-107); Glomerular Filtration Rate 86.1 mL/min (90-130); Glucose 98 mg/dL (65-115); Osmolality Calculated 292 mOsm/kg (285-295); Potassium 3.6 mmol/L (3.5-5.1); Sodium 141 mmol/L (136-145)
[2021-07-22] MEDS: D5-NS 0.45% + KCL 20 mEq 20 MEQ/1,000 ML BAG 75 MEQ IV ×2 (08:45→23:20)
[2021-07-22] MEDS: famotidine 20 mg/2 mL INJ IVP (12:17)
[2021-07-22] MEDS: ondansetron 2 mg/ML SDV 2 mL 4 MG IVP (15:20)
--- NOTE | 2021-07-22 18:22 | PC.NURSE ---
Dr. Lopez updated on patient. patient has still not passed gas. He has been up walking multiple times throughout the day. No complaints of nausea, and pain medication has adequately treated pain.
[2021-07-23] VITALS (13 sets, daily range): BP systolic 118–163; BP diastolic 68–83; PULSE 56–80; RESP 16–19; TEMP 36.6–37.1; O2SAT 91–98
[2021-07-23] MEDS: metroNIDAZOLE IV 500 MG/100 ML PREMIX 100 MG IV ×3 (00:31→16:38)
[2021-07-23] MEDS: famotidine 20 mg/2 mL INJ IVP ×3 (00:31→23:39)
[2021-07-23] MEDS: morphine 4 mg/mL SDV 1 mL IVP ×5 (01:23→15:07)
[2021-07-23] MEDS: piperacillin-tazobactam 3.375 GM in sodium chloride 0.9% (plus) 50 ML IV ×3 (04:18→20:32)
[2021-07-23 06:48] LABS: Hematocrit 32.4 % (42.0-52.0); Hemoglobin 10.6 g/dL (11.7-16.6)
[2021-07-23 07:03] LABS: Anion Gap 13.4 (5-19); Blood Urea Nitrogen 8 mg/dL (8-23); Calcium 8.4 mg/dL (8.5-10.5); Carbon Dioxide 25 mmol/L (22-29); Chloride 105 mmol/L (98-107); Glomerular Filtration Rate 137.4 mL/min (90-130); Glucose 113 mg/dL (65-115); Osmolality Calculated 289 mOsm/kg (285-295); Potassium 3.4 mmol/L (3.5-5.1); Sodium 140 mmol/L (136-145)
--- NOTE | 2021-07-23 07:58 | US_ITS ---
WS: [id number] RENAL ULTRASOUND HISTORY: RULE OUT HYDRONEPHROSIS OF LEFT KIDNEY COMPARISON: None available. TECHNIQUE: 2-D and color Doppler imaging of the kidney submitted. Right kidney: 10.5 cm x 4.7 cm x 4.4 cm. Normal echogenicity with no hydronephrosis or mass. Left kidney: 10.2 cm x 5.2 cm x 4.6 cm. Normal echogenicity with no hydronephrosis or mass. Aorta: Normal. Urinary Bladder: Normal distention. US/US renal BI* [id number] IMPRESSION: Normal renal ultrasound. No hydronephrosis LEFT kidney.
--- NOTE | 2021-07-23 08:03 | PM.PN ---
Subjective Subjective: Interval history: Patient started passing little gas. Urine used to be clear and per nursing report the patient is pulling onto his Marino catheter and currently started to become pink dark-colored and patient reports when I asked him that he has been having intermittent left flank pain. That was never reported before. Continues to have adequate urine output and no clots reported. Stable H&H and stable vital signs and has been tolerating clear liquid diet Vitals/I&O/Wt Last Vital Signs Temp 98.3 F 07/23/21 07:47 Pulse 80 07/23/21 07:47 Resp 16 07/23/21 07:47 BP 142/79 07/23/21 07:47 Pulse Ox 95 07/23/21 07:47 07/22/21 07/23/21 07/23/21 22:59 06:59 14:59 Intake Total 1550 / 2700 420 / 3120 Output Total 1700 / 3000 Balance 1550 / 1400 -1280 / 120 Physical Exam Narrative: EXAM NARRATIVE: Patient is conscious alert oriented X3 BMI 23 Head and neck examination PERRLA no masses no cervical lymphadenopathy no jaundice Abdomen nontender except at the incision sites nondistended soft no organomegaly guarding or rigidity/no signs of peritonitis. Bowel sounds are positive. Left flank tenderness Dressing was taken down incisions are clean dry and intact and skin genevieve in place Marino catheter in place with pink-colored urine Extremities no cyanosis no clubbing no edema Urinary Catheter Management^: Marino: Cath Placed During This Visit: yes Reason for Continuing Indwelling Catheter: Other Urinary Catheter Date of Insertion: 07/20/21 Urinary Catheter Time of Insertion: 08:23 Data : 07/23/21 06:31 07/23/21 06:31 A&P Assessment and plan (1) S/P laparoscopic colectomy: Assessment 61 years old gentleman status post laparoscopic sigmoid colectomy with colorectal anastomosis. 07/20/2021 Plan We will add protein shake to the clear liquid diet slowly Encourage ambulation Continue Marino catheter care and education for the patient to avoid pulling on the catheter Per my discussion with Dr. Olivo with the new finding of the intermittent left flank pain, he recommended to obtain an ultrasound of the kidneys to rule out potential hydronephrosis and if that is normal the Marino catheter can be taken out if not likely we will request a CT scan abdomen and pelvis to rule out potential left ureteric extravasation. Incentive spirometer every hour Continue Flagyl every 8 hours IV Continue maintenance fluids at 75 mL/h Assurance and education All questions have been answered and all concerns have been addressed to patient's satisfaction. Status: Acute Attestations Medical Necessity Statement*: Patient requiring inpatient hospitalization passing 2 midnights for perioperative care and pain control and requiring IV antimicrobial therapy. Pending imaging studies of left kidney to rule out hydronephrosis Time Spent in Patient Care: 16 - 35 minutes Coding Level of Care Code Acute Plater Printed Circuit Board Panels for g Fwd Diagnoses S/P laparoscopic colectomy Z90.49
[2021-07-23] MEDS: D5-NS 0.45% + KCL 20 mEq 20 MEQ/1,000 ML BAG 75 MEQ IV ×2 (15:10→16:38)
[2021-07-23] MEDS: oxyCODONE-APAP 5-325 mg Tablet 1 TAB PO ×2 (18:43→23:39)
[2021-07-23] MEDS: gabapentin 300 mg Capsule 600 MG PO (20:32)
[2021-07-24] VITALS: BP 108/63; PULSE 58; RESP 17; TEMP 36.6; O2SAT 93
[2021-07-24] MEDS: metroNIDAZOLE IV 500 MG/100 ML PREMIX 100 MG IV (00:34)
[2021-07-24 04:00] VITALS: BP 144/83; PULSE 58; RESP 17; TEMP 36.8; O2SAT 96
[2021-07-24 04:46] VITALS: RESP 18
[2021-07-24] MEDS: ondansetron 2 mg/ML SDV 2 mL 4 MG IVP (04:46)
[2021-07-24] MEDS: oxyCODONE-APAP 5-325 mg Tablet 1 TAB PO (04:46)
[2021-07-24] MEDS: piperacillin-tazobactam 3.375 GM in sodium chloride 0.9% (plus) 50 ML IV (04:46)
[2021-07-24] MEDS: D5-NS 0.45% + KCL 20 mEq 20 MEQ/1,000 ML BAG 75 MEQ IV (04:47)
--- NOTE | 2021-07-24 06:46 | PM.PN ---
Subjective Subjective: Interval history: Patient seems to be doing fairly well. Started passing gas and having smaller bowel movements and continued to have adequate urine output pink in color without blood clots. Seems to be overall pain is under better control now. Patient reports to me that he is under pain control contract with the pain clinic and is supposed to be seeing Dr. Soliz this coming Monday. Tolerating p.o. intake and started on protein shakes. Vitals/I&O/Wt Last Vital Signs Temp 98.3 F 07/24/21 04:00 Pulse 58 L 07/24/21 04:00 Resp 18 07/24/21 04:46 BP 144/83 07/24/21 04:00 Pulse Ox 96 07/24/21 04:00 07/23/21 07/23/21 07/24/21 14:59 22:59 06:59 Intake Total 1390 / 1390 600 / 1990 1261.25 / 3251.25 Output Total 600 / 600 200 / 800 Balance 790 / 790 400 / 1190 1261.25 / 2451.25 Physical Exam Narrative: EXAM NARRATIVE: Patient is conscious alert oriented X3 BMI 23 Head and neck examination PERRLA no masses no cervical lymphadenopathy no jaundice Abdomen nontender except at the incision sites nondistended soft no organomegaly guarding or rigidity/no signs of peritonitis. Bowel sounds are positive. Incisions are clean dry and intact and skin genevieve in place Extremities no cyanosis no clubbing no edema Urinary Catheter Management^: Marino: Cath Placed During This Visit: yes Reason for Continuing Indwelling Catheter: Other Urinary Catheter Date of Insertion: 07/20/21 Urinary Catheter Time of Insertion: 08:23 Data : 07/23/21 06:31 07/23/21 06:31 A&P Assessment and plan (1) S/P laparoscopic colectomy: Assessment 61 years old gentleman status post laparoscopic sigmoid colectomy with colorectal anastomosis. 07/20/2021 Plan We will advance to full liquid diet and continue protein shakes. Encourage ambulation We will DC IV fluids and IV antibiotics Incentive spirometer every hour Saline lock IV Should the patient continue to do well we will plan to discharge home today Assurance and education All questions have been answered and all concerns have been addressed to patient's satisfaction. Status: Acute Attestations Medical Necessity Statement*: Patient required inpatient hospitalization passing 2 midnights for awaiting bowel functions and need of parenteral antimicrobial therapy. Continue monitoring urine output with regard to color and monitor patient's progress and able to void without need for a catheter back. Time Spent in Patient Care: 16 - 35 minutes Coding Level of Care Code Acute Vocational Rehabilitation Counselor for Chg Fwd Diagnoses S/P laparoscopic colectomy Z90.49
[2021-07-24 08:00] VITALS: BP 130/79; PULSE 61; RESP 17; TEMP 36.5; O2SAT 97
[2021-07-24] MEDS: gabapentin 300 mg Capsule 600 MG PO (08:34)
[2021-07-24] MEDS: oxyCODONE 5 mg IR Tab/Cap PO (08:36)
--- NOTE | 2021-07-24 10:31 | P.DS_ITS ---
Discharge Providers Date of Admission: 07/20/21 13:14 Date of Discharge: July 24, 2021 Attending Provider at Admission: Gerardo Rodas MD Attending Provider at Discharge: Gerardo Rodas MD Primary Care Provider: Jesse Sifuentes MD Diagnoses at Discharge Discharge Diagnosis (1) S/P laparoscopic colectomy: Status: Resolved Reason for Visit Reason for Visit: Colon polyp Hospital Course Hospital Course Mr. 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 Patient undergone laparoscopic sigmoid colectomy and left ureteric stent placement that was done by the urology service, postoperatively patient did encounter pain that was managed by parenteral IV narcotics that required Dilaudid, morphine and Tylenol IV. As patient did have history of chronic pain management and current contract with pain clinic. Patient maintained to have stable vital signs and good urine output yet he did have hematuria after surgery and the thought was related to the left ureteric stent placement and that cleared over time but started to become pink again as the patient was complaining of intermittent left flank pain. Further urology recommendations is to obtain an ultrasound of the kidneys to rule out underlying hydronephrosis and it was normal. And subsequently the patient's Marino catheter was taken out and he maintained to have appropriate urine output with mild pink-tinge, also the patient started having small bowel movements did encounter mild bloody wash to it and started to pass gas and tolerating clear liquid diet that was advanced to full liquid diet without complication, patient's pain medication was switched to oral and that seemed to be having appropriate control for his pain. Patient was placed on Zosyn and Flagyl during hospitalization as there was minor spillage during surgery. Blood work showed slight drift in H&H and in the presence of previously mentioned hematuria I elected to hold off heparin subcu and patient was completely ambulatory and SCDs were on while he is bed. Currently the patient is on full liquid diet and was started also on protein shakes to supplement, and he meets the appropriate and safe criteria for discharge home. Physical Exam Urinary Catheter Management^: Marino: Cath Placed During This Visit: yes Reason for Continuing Indwelling Catheter: Other Urinary Catheter Date of Insertion: 07/20/21 Urinary Catheter Time of Insertion: 08:23 Discharge Data Data Completed and Pending: Completed Studies During Hospitalization Category Date Time Status US renal BI* [id number] Stat Ultrasound 07/23/21 07:58 Completed Pending at discharge Category Date Time Status ES surgery / GI i mages Routine Exams 07/20/21 06:58 Taken Pathology: Surgic al [PTH] Routine Pth 07/20/21 12:16 Received Vitals: Last Vital Signs Temp 97.7 F 07/24/21 08:00 Pulse 61 07/24/21 08:00 Resp 17 07/24/21 08:00 BP 130/79 07/24/21 08:00 Pulse Ox 97 07/24/21 08:00 Discharge Plan Discharge Patient Disposition: Home Condition: Stable Prescriptions: New oxycodone 5 mg tablet 5 mg PO Q6H PRN (Reason: pain) Qty: 20 RF: 0 Continued oxycodone-acetaminophen 10-325 mg tablet 1 tab PO BID MDD 2 PRN (Reason: Chronic pain) 28 Days Qty: 56 RF: 0 gabapentin 600 mg tablet 1,200 mg PO TID 30 Days Qty: 180 RF: 2 erythromycin 500 mg tablet 500 mg PO DAILY 1 Days Qty: 3 RF: 0 neomycin 500 mg tablet 1 g PO DIRECTED RF: 0 Discharge Orders: Discharge Order (Routine); Ordered 07/24/21 Ordered By: Gerardo Rodas Referrals: Gerardo Rodas MD [Physician] - 1 week (Return to surgery office in 1 week) Discharge Diet: As Directed Discharge Activity: Limit activity as instructed Patient Instructions: Oxycodone, Rapid Release (By mouth), Full Liquid Diet (GEN), Urethral Stent Placement (GEN), GI (Gastrointestinal) Soft Diet (GEN), Colectomy (GEN), Opioid Safety Activity Restrictions/Additional Instructions: Post discharge instructions: 1. Patient can shower after 48 hours from surgery. Do not soak in bathtub, swimming pool or hot tub for 4 weeks after surgery. 2. Leave incisions open to air, do not apply triple antibiotic ointment or medications on the incisions. 3. Up and walking as tolerated Activity 4. Do not lift more than 5 pounds first 2 weeks after surgery and not more than 25 pounds 6 to 8 weeks after surgery. Driving 5. Do not operate heavy machinery or drive while using pain medications Diet Full liquid diet for today and tomorrow and Monday start to advance to soft GI diet and focus on lactose-free protein shakes 3 to 4 cans a day. Pain control Patient was given a prescription for oxycodone as a limited amount till is being evaluated by his pain management team this coming Monday. Nausea Nausea is common after surgery, take nausea medications as needed and stay on a liquid bland diet until nausea resolves. Breathing Patient was encouraged and was given incentive spirometer to use at home 10 times an hour while awake Cessation of smoking will help wound healing and overall health. Call the office at [phone] during office hours or go the Emergency Room after hours for - ?Fever to 100.4 or greater ?Shaking chills ?Pain that increases over time ?Redness, warmth, or pus draining from incision sites ?Persistent nausea or inability to take in liquids Discharge Attestations Time Spent in Discharge Care*: greater than 30 min Specific Discharge Activities: educating patient and educating and/or supporting family/caregiver Time Spent in Smoking Cessation: more than 10 minutes Status at Discharge: Cognitive status at discharge: cognitively intact , Behavioral status at discharge: cooperative , Functional status at discharge: independent ambulation Overall status at discharge: patient is progressing back to baseline Quality Metrics Clinical Quality Measures During this hospital stay, did patient experience: None Coding Level of Care Code Acute Chg FW DC note Diagnoses S/P laparoscopic colectomy Z90.49
[2021-07-24 12:00] VITALS: BP 139/80; PULSE 57; RESP 17; TEMP 36.4; O2SAT 98
== END 2021-07-24 12:08 | disposition home or self-care (01) | DRG 331 ==
LOC: MEDSURG 13:15
PROVIDERS: Urology; Admitting Provider Surgery; PCP Family Medicine; Visit Provider Surgery
PROC: 0DTN4ZZ Resection of Sigmoid Colon, Percutaneous Endoscopic Approach (ICD-10-PCS; CPT 44204; principal; 2021-07-20 07:00)
PROC: 0TJB8ZZ Inspection of Bladder, Via Natural or Artificial Opening Endoscopic (ICD-10-PCS; CPT 52000; 2021-07-20 07:00)
PROC: 0T778DZ Dilation of Left Ureter with Intraluminal Device, Via Natural or Artificial Opening Endoscopic (ICD-10-PCS; CPT 74420; 2021-07-20 07:00)
PROC: 0T778DZ Dilation of Left Ureter with Intraluminal Device, Via Natural or Artificial Opening Endoscopic (ICD-10-PCS; CPT 50605; 2021-07-20 07:00)
DX: K57.32 Diverticulitis of large intestine without perforation or abscess without bleeding (principal); Z87.19 Personal history of other diseases of the digestive system; Z86.010 Personal history of colon polyps; M54.12 Radiculopathy, cervical region; F17.210 Nicotine dependence, cigarettes, uncomplicated; K66.0 Peritoneal adhesions (postprocedural) (postinfection); Z79.891 Long term (current) use of opiate analgesic
CPT/HCPCS: 36415; 76000; 76770; 80048; 85014; 85018; 88309; 94664; 96372; 96374; C2625; C9290; J1100; J1170; J1644; J2060; J2250; J2270; J2405; J2543; J2704; J2710; J3010; J3490; J7030; S0030

== ENCOUNTER → 2021-07-27 09:57 | Outpatient (BNVA) | payer BC, SELFPAY | PROVIDERS: PCP Family Medicine; Visit Provider Anesthesiology Pain Medicine | DX: G89.29 Other chronic pain (principal); M54.12 Radiculopathy, cervical region; M48.02 Spinal stenosis, cervical region; Z78.9 Other specified health status; Z79.899 Other long term (current) drug therapy; Z98.890 Other specified postprocedural states | CPT/HCPCS: 99213; 99214 ==

== ENCOUNTER 2022-11-25 11:01 | Outpatient (CLI) | payer BC, SELFPAY ==
--- NOTE | 2022-11-25 11:00 | USCV_ITS ---
Farrukh Rodrigez Age: 62 Gender: M : 1960 Exam Date: 11/25/2022 11:44 Ordering Phys: Jesse Sifuentes MD Technologist: Perla Linares [place] [facility] [place]: [place] BP: 130 / 88 HR: 60 Rhythm: Sinus Technical Quality: Good MEASUREMENTS (Male / Female) Normal Values 2D ECHO LV Diastolic Diameter PLAX 4.1 cm 4.2 - 5.9 / 3.9 - 5.3 cm LV Systolic Diameter PLAX 2.3 cm IVS Diastolic Thickness 1.4 cm 0.6 - 1.0 / 0.6 - 0.9 cm IVS Systolic Thickness 1.5 cm LVPW Diastolic Thickness 0.8 cm 0.6 - 1.0 / 0.6 - 0.9 cm LVPW Systolic Thickness 1.5 cm LVOT Diameter 2.0 cm LV Ejection Fraction 2D Teich 75.9 % LV Ejection Fraction MOD 2C 77.9 % LV Ejection Fraction 2C AL 78.1 % LA Diameter 2.5 cm LA Width 3.3 cm LA Height 3.5 cm RA Width 2.9 cm RA Height 4.2 cm Aorta at Sinotubular Diameter 2.9 cm IVC Diameter 1.5 cm M-MODE MV E Point Septal Separation 0.4 cm DOPPLER AV Peak Velocity 115.0 cm/s LVOT Peak Velocity 87.0 cm/s AV Area Cont Eq vti 2.6 cm squared AV Area Cont Eq pk 2.4 cm squared MV Peak Velocity 105.0 cm/s MV Area PHT 5.0 cm squared Mitral E to A Ratio 1.0 MV E' Velocity 51.5 cm/s Mitral E to MV E' Ratio 8.8 Mitral E to LV E' Lateral Ratio 9.2 Mitral E to LV E' Septal Ratio 8.6 TR Peak Velocity 128.0 cm/s TR Peak Gradient 6.6 mmHg Right Atrial Pressure 5.0 mmHg Pulmonary Artery Systolic Pressu 11.6 mmHg PV Peak Velocity 101.0 cm/s RV Acceleration Time 0.2 s RV Ejection Time 0.3 s RV AcT/ET 0.6 FINDINGS Left Ventricle Left ventricular ejection fraction is estimated at 78 %. No gross abnormalities noted Right Ventricle The right ventricle is normal in size and function. Right Atrium The right atrium is normal in size. Left Atrium The left atrium is normal in size. Mitral Valve No gross abnormalities noted Aortic Valve Thickened noncoronary cusp of the aortic valve Tricuspid Valve Trace to mild tricuspid valve regurgitation. Pulmonic Valve Mild pulmonary valve regurgitation. Pericardium Normal pericardium without effusion. Aorta Normal ascending aorta dimension. IVC Normal inferior vena cava. CONCLUSIONS Left ventricular ejection fraction is estimated at 78 %. No gross wall motion abnormalities noted. Thickened noncoronary cusp of the aortic valve. Trace to mild tricuspid valve regurgitation. Mild pulmonary valve regurgitation. No similar previous studies are available for comparison Dr Elvie Silverio MD [facility] (Electronically Signed) Final Date: 28 November 2022 10:15 S
== END 2022-11-25 11:02 | disposition home or self-care (01) ==
PROVIDERS: PCP Family Medicine; Visit Provider Family Medicine
DX: R06.09 Other forms of dyspnea (principal); I08.2 Rheumatic disorders of both aortic and tricuspid valves
CPT/HCPCS: 93306

== ENCOUNTER 2023-11-03 10:00 | Outpatient (CLI) | payer BC, SELFPAY ==
--- NOTE | 2023-11-03 10:10 | MR_ITS ---
WS: [id number] MRI LUMBAR SPINE NONCONTRAST TECHNIQUE: Sagittal T1, T2 and STIR imaging. Axial T1 and T2 imaging. CLINICAL INFORMATION: Low back pain. Work injury. COMPARISON: None. FINDINGS: Mild lumbar curve. No acute compression. Slight anterolisthesis L4 on L5. Disc bulging worse at L3-L4 and L4-L5. Reversal of the normal cervical lordosis on the english instructor imaging with small disc osteophyte protrusions at C4-C5 C5-C6 and C6-C7. L1-L2: Mild facet arthropathy. Spinal canal and foramen are patent. L2-L3: Mild annular bulging. Slight narrowing of the LEFT subarticular recess. Moderate facet arthrop athy. Spinal canal and foramen are patent. L3-L4: Mild annular bulging with slight impingement traversing LEFT L4 nerve root in the subarticular recess. Moderate facet arthropathy. Mild LEFT foraminal narrowing. L4-L5: Mild annular bulging with slight effacement of the ventral thecal sac. Moderate facet arthropa thy. Small LEFT greater than RIGHT facet effusions. LEFT foraminal protrusion impinges the exiting LE FT L4 nerve root with moderate to severe LEFT foraminal narrowing. Mild RIGHT foraminal narrowing. L5-S1: Mild annular bulging. Moderate facet arthropathy. Spinal canal and foramen are patent. Visualized pelvic bony structures: Normal. Paravertebral soft tissues: Normal. IMPRESSION: 1. Mild lumbar curve. No acute compression. Slight anterolisthesis L4 on L5. 2. Mild annular bulging L3-4 with impingement on the LEFT subarticular recess and traversing LEFT L4 nerve root. LEFT foraminal protrusion with mild LEFT foraminal narrowing and slight contact of the e xiting LEFT L3 nerve root. 3. Mild annular bulging L4-5 with mild central canal stenosis. Slight narrowing of the subarticular recess bilaterally. LEFT foraminal disc osteophyte protrusion impinges the exiting LEFT L4 nerve root with moderate to severe LEFT foraminal narrowing. 4. Moderate facet arthropathy L4-5 with small facet effusions and pedicle edema LEFT greater than RI GHT compatible with synovitis likely inflammatory or degenerative. 5. Moderate facet arthropathy L3-L4 and L5-S1.
--- NOTE | 2023-11-03 10:10 | USCV_ITS ---
Farrukh Rodrigez Age: 63 Gender: M : 1960 Exam Date: 11/03/2023 11:27 Ordering Phys: Jesse Sifuentes MD Technologist: Anders Silva Exam Location: [facility] – [place] Indication: renal art stenosis Aortic Velocity @ SMA (cm/s) 69.8 RIGHT KIDNEY LEFT KIDNEY Velocity (cm/s) Velocity (cm/s) Sys/Calix Sys/Calix Resistive Index Resistive Index 81.2 / 0.0 1.00 Proximal Renal Artery 68.2 / 27.0 102.6 / 16.1 0.84 Mid Renal Artery 102.6 / 16.1 0.84 55.1 / 23.5 0.57 Distal Renal Artery 58.3 / 18.9 0.68 83.7 / 22.0 0.74 Hilar 54.8 / 19.9 0.64 34.0 / 19.0 0.44 Upper Pole 31.8 / 12.2 0.62 50.6 / 11.4 0.77 Mid Pole 53.5 / 17.6 0.67 68.2 / 0.0 1.00 Lower Pole 50.1 / 13.2 0.74 1.50 Renal Aortic Ratio 1.00 Accleration Index (cm/sec2) 167.50 Hilar 120.60 378.20 Upper Pole 108.70 182.20 Mid Pole 168.50 250.50 Lower Pole 156.30 9.3 Kidney Length (mm) 9.0 FINDINGS No evidence of abdominal aortic aneurysm. There is no evidence of hemodynamically significant right renal artery stenosis. There is no evidence of hemodynamically significant left renal artery stenosis. Normal size kidneys. CONCLUSIONS The right and left kidneys are similar in size. No sonographic evidence of hemodynamically significant renal artery stenosis bilaterally. Dr. Adelia Avery DO (Electronically Signed) Final Date: 04 November 2023 08:34 S
== END 2023-11-03 10:01 | disposition home or self-care (01) ==
LOC: RAD 10:02
PROVIDERS: PCP Family Medicine; Visit Provider Family Medicine
DX: M51.16 Intervertebral disc disorders with radiculopathy, lumbar region (principal); M48.061 Spinal stenosis, lumbar region without neurogenic claudication; M47.26 Other spondylosis with radiculopathy, lumbar region; M47.817 Spondylosis without myelopathy or radiculopathy, lumbosacral region; M25.78 Osteophyte, vertebrae
CPT/HCPCS: 72148; 93975